=== PATIENT | female | born 1950 | race Caucasian/White ===

== ENCOUNTER 2017-09-12 08:05 | Emergency (ER) | payer BC, MEDICARE ==
[~2017-09-12] VITALS: Ht 172.7 cm; Wt 104.5 kg
[~2017-09-12 08:05] MED LIST: ASPI81TA82 PO; ATOR40TA PO; CLIN1CAP6 PO; FISH100020 PO; LORC10TA24 PO; LOTE20TA3 PO; METF500 PO; TAB-TAB PO; TRAM50TA PO
[2017-09-12 08:11] VITALS: BP 179/97; PULSE 94; RESP 16; TEMP 97.7; O2SAT 97
--- NOTE | 2017-09-12 08:25 | PD ---
HPI Chief Complaint: Dizziness Time Seen by Provider: 08:08 Travel History International Travel<30 days: No Contact w/Intl Traveler<30days: No Traveled to known affect area: No History of Present Illness HPI 67-year-old female says she woke up this morning and had severe vertigo. She tried to stand to go to the bathroom and she fell to the ground. She called an ambulance and brought by ambulance. She says her vertigo is much better now than it was at home. She does not have any tinnitus. She does not have any history of vertigo. She does not have any trouble with her hearing. She had a headache before going to bed which he took some Tylenol. She is having a headache now. This is not unusual for her. There has been no trouble with speech or swallowing PFSH Past Medical History Depression: Yes High Cholesterol: Yes Diabetes: Yes Patient Takes Glucophage: Yes Hypertension: Yes Tetanus Vaccination: > 5 Years Influenza Vaccination: Yes Menopausal: Yes Past Surgical History Abdominal Surgery: Yes (UMBILICAL HERNIA REPAIR) Section: Yes Eye Surgery: Yes (CATAract) Joint Replacement: Yes (TOTAL KNEE RIGHT) Social History Alcohol Use: No Tobacco Use: No (QUIT 8 YRS AGO) Substance Use: No Allergies-Medications (Allergen,Severity, Reaction): Coded Allergies: No Known Allergies (Unverified , 09/12/17) Reported Meds & Prescriptions Reported Meds & Active Scripts Active Reported Benazepril-Hydrochlorothiazide 20-12.5 Mg Tab 1 Tab PO DAILY Metformin (Metformin HCl) 500 Mg Tab 500 Mg PO BIDPC Atorvastatin (Atorvastatin Calcium) 40 Mg Tab 40 Mg PO HS Stool Softener (Docusate Sodium) 100 Mg Cap 1 Tab PO DAILY Echinacea 500 Mg Capsule 900 Mg PO DAILY Vitamin E 100 Unit Tab 1,000 Units PO DAILY Fish Oil 1,000 mg Softgel ([place]-3/Dha/Epa/Fish Oil) 1,000 Mg (120 Mg-180 Mg) Capsule 1,000 Mg PO DAILY Aspirin 81 Mg Chew 81 Mg CHEW DAILY Review of Systems General / Constitutional: No: Fever, Chills Eyes: No: Diploplia, Blurred Vision, Redness, Foreign Body Sensation HENT: Positive: Headaches, Vertigo, Lightheadedness, No: Sore Throat, Rhinitis , Congestion Cardiovascular: No: Chest Pain or Discomfort, Palpitations Respiratory: No: Cough, Shortness of Breath Gastrointestinal: No: Nausea, Vomiting Genitourinary: No: Urgency, Frequency Musculoskeletal: No: Myalgias, Arthralgias Skin: No Rash, No Itching Neurologic: Positive: Dizziness, No: Weakness, Syncope, Focal Abnormalities Hematologic/Lymphatic: No: Easy Bruising Physical Exam Narrative GENERAL: Well-developed female SKIN: Focused skin assessment warm/dry. HEAD: Atraumatic. Normocephalic. EYES: Pupils equal and round. No scleral icterus. No injection or drainage. s some nystagmus on leftward gaze ENT: No nasal bleeding or discharge. Mucous membranes pink and moist. NECK: Trachea midline. No JVD. CARDIOVASCULAR: Regular rate and rhythm. No murmur appreciated. RESPIRATORY: No accessory muscle use. Clear to auscultation. Breath sounds equal bilaterally. GASTROINTESTINAL: Abdomen soft, non-tender, nondistended. Hepatic and splenic margins not palpable. MUSCULOSKELETAL: No obvious deformities. No clubbing. No cyanosis. No edema. NEUROLOGICAL: Awake and alert. No obvious cranial nerve deficits. Motor grossly within normal limits. Normal speech. PSYCHIATRIC: Appropriate mood and affect; insight and judgment normal. Data Data Last Documented VS Vital Signs Date Time Temp Pulse Resp B/P (MAP) Pulse Ox O2 Delivery O2 Flow Rate FiO2 09/12/17 10:50 Room Air 09/12/17 10:49 78 18 158/97 (117) 97 09/12/17 08:11 97.7 Orders Orders Complete Blood Count With Diff (09/12/17 08:22) Comprehensive Metabolic Panel (09/12/17 08:22) Meclizine (Antivert) (09/12/17 08:30) Mri Brain W/O Contrast (09/12/17 09:15) Lisinopril (Prinivil) (09/12/17 09:30) Hydrochlorothiazide (Hydrodiuril) (09/12/17 09:45) Lorazepam Inj (Ativan Inj) (09/12/17 09:45) Acetaminophen (Tylenol) (09/12/17 09:45) Labs Laboratory Tests Test 09/12/17 08:30 White Blood Count 4.8 TH/MM3 Red Blood Count 4.32 MIL/MM3 Hemoglobin 13.5 GM/DL Hematocrit 40.9 % Mean Corpuscular Volume 94.8 FL Mean Corpuscular Hemoglobin 31.3 PG Mean Corpuscular Hemoglobin Concent 33.0 % Red Cell Distribution Width 11.6 % Platelet Count 208 TH/MM3 Mean Platelet Volume 7.8 FL Neutrophils (%) (Auto) 70.0 % Lymphocytes (%) (Auto) 21.2 % Monocytes (%) (Auto) 5.2 % Eosinophils (%) (Auto) 3.1 % Basophils (%) (Auto) 0.5 % Neutrophils # (Auto) 3.5 TH/MM3 Lymphocytes # (Auto) 1.0 TH/MM3 Monocytes # (Auto) 0.2 TH/MM3 Eosinophils # (Auto) 0.1 TH/MM3 Basophils # (Auto) 0.0 TH/MM3 CBC Comment DIFF FINAL Differential Comment Blood Urea Nitrogen 21 MG/DL Creatinine 0.98 MG/DL Random Glucose 140 MG/DL Total Protein 6.7 GM/DL Albumin 3.5 GM/DL Calcium Level 8.8 MG/DL Alkaline Phosphatase 97 U/L Aspartate Amino Transf (AST/SGOT) 37 U/L Alanine Aminotransferase (ALT/SGPT) 73 U/L Total Bilirubin 0.5 MG/DL Sodium Level 138 MEQ/L Potassium Level 3.9 MEQ/L Chloride Level 105 MEQ/L Carbon Dioxide Level 25.4 MEQ/L Anion Gap 8 MEQ/L Estimat Glomerular Filtration Rate 57 ML/MIN MDM Medical Decision Making Medical Screen Exam Complete: Yes Emergency Medical Condition: Yes Medical Record Reviewed: Yes Differential Diagnosis Differential includes labyrinthitis, peripheral vertigo, CVA Narrative Course Patient initially had minimal symptoms however while in the ER she has complaint of increasing vertigo. She was unable to lay flat due to the vertigo. She also is now complaining of headache. His of the increase in symptoms I did order an MRI to assess for possible central etiology. The MRI is read as negative. Patient will be released prescription for Antivert Diagnosis Primary Impression: Labyrinthitis Qualified Codes: H83.09 - Labyrinthitis, unspecified ear Departure Forms: Tests/Procedures, Work Release Enter return to work date: Sep 15, 2017 Scripts Meclizine HCl (Meclizine 25) 25 Mg Tab 1 TAB PO Q6HR for Vertigo, #30 Prov: Ken Trinidad MD 09/12/17 Disposition: DISCHARGE HOME Condition: Stable Kne Trinidad MD Sep 12, 2017 08:25
[2017-09-12] MEDS ORDERED: MECLIZINE HCL 25 MG TAB PO ONE (08:30)
[2017-09-12 08:40] LABS: AUTOMATED NEUTROPHIL # 3.5 TH/MM3 (1.8-7.7); BASOPHIL % 0.5 % (0.0-2.0); EOSINOPHIL # 0.1 TH/MM3 (0-0.4); EOSINOPHIL % 3.1 % (0.0-4.0); HEMATOCRIT 40.9 % (35.0-46.0); HEMOGLOBIN 13.5 GM/DL (11.6-15.3); LYMPH % 21.2 % (9.0-44.0); MEAN CELL VOLUME 94.8 FL (80.0-100.0); MEAN CORPUSCULAR HEMOGLOBIN 31.3 PG (27.0-34.0); MEAN PLATELET VOLUME 7.8 FL (7.0-11.0); MONO % 5.2 % (0.0-8.0); MONOCYTE # 0.2 TH/MM3 (0-0.9); PLATELET COUNT 208 TH/MM3 (150-450); RED BLOOD COUNT 4.32 MIL/MM3 (4.00-5.30); RED CELL DISTRIBUTION WIDTH 11.6 % (11.6-17.2); WHITE BLOOD COUNT 4.8 TH/MM3 (4.0-11.0)
[2017-09-12 08:47] LABS: CHLORIDE 105 MEQ/L (98-107); SODIUM (NA) 138 MEQ/L (136-145)
[2017-09-12 08:50] LABS: CALCIUM 8.8 MG/DL (8.5-10.1)
[2017-09-12 08:51] LABS: ALBUMIN 3.5 GM/DL (3.4-5.0); BICARBONATE 25.4 MEQ/L (21.0-32.0); BLOOD UREA NITROGEN 21 MG/DL (7-18); GLUCOSE,RANDOM 140 MG/DL (74-106)
[2017-09-12 08:54] LABS: ALT (GPT) 73 U/L (10-53); AST (GOT) 37 U/L (15-37); CREATININE 0.98 MG/DL (0.50-1.00); GLOMERULAR FILTRATION RATE 57 ML/MIN (>89)
[2017-09-12 08:55] LABS: TOTAL BILIRUBIN ADULT 0.5 MG/DL (0.2-1.0)
[2017-09-12 08:56] LABS: TOTAL PROTEIN 6.7 GM/DL (6.4-8.2)
[2017-09-12 08:57] LABS: ALKALINE PHOSPHATASE 97 U/L (45-117)
[2017-09-12] MEDS ORDERED: BENA20TA3 PO (09:02)
[2017-09-12] MEDS ORDERED: ASPI-516 CHEW (09:02)
[2017-09-12] MEDS ORDERED: METF500T PO (09:02)
[2017-09-12] MEDS ORDERED: ATOR40TA16 PO (09:02)
[2017-09-12] MEDS ORDERED: OMEG100046 PO (09:02)
[2017-09-12] MEDS ORDERED: ECHI500C5 PO (09:02)
[2017-09-12] MEDS ORDERED: VITA100T65 PO (09:02)
[2017-09-12] MEDS ORDERED: DOCU1CAP66 PO (09:02)
[2017-09-12 09:10] VITALS: BP 163/98; PULSE 82; RESP 18; O2SAT 96
[2017-09-12] MEDS ORDERED: HYDROCHLOROTHIAZIDE 12.5 MG CAP PO ONE (09:15)
[2017-09-12] MEDS ORDERED: LISINOPRIL 20 MG TAB PO ONE (09:30)
[2017-09-12] MEDS ORDERED: HYDROCHLOROTHIAZIDE 25 MG TAB PO ONE (09:45)
[2017-09-12] MEDS ORDERED: ACETAMINOPHEN 500 MG CPLT PO ONE (09:45)
[2017-09-12] MEDS ORDERED: LORazepam 2 MG/ML VIAL IV PUSH ONE (09:45)
[2017-09-12 10:05] VITALS: BP 171/101; PULSE 82; RESP 19; O2SAT 97
[2017-09-12 10:49] VITALS: BP 158/97; PULSE 78; RESP 18; O2SAT 97
--- NOTE | 2017-09-12 11:37 | RADRPT ---
EXAM DATE/TIME: 09/12/2017 11:09 [facility] COMPARISON: No previous studies available for comparison. INDICATIONS : Vertigo with headache for 2 days. Evaluate for CVA. MEDICAL HISTORY : Diabetes mellitus type 2. Hypertension. SURGICAL HISTORY : Total knee replacement, right. Inguinal hernia repair. ENCOUNTER: Initial ACUITY: 2 day PAIN SCORE: 3/10 LOCATION: Head TECHNIQUE: Multiplanar, multisequence MRI of the brain was performed without contrast. FINDINGS: CEREBRUM: The ventricles are normal for age. No evidence of midline shift, mass lesion, hemorrhage or acute in farction. No extraaxial fluid collections are seen. The pituitary gland and suprasellar cistern are normal in configuration. WHITE MATTER: On the flair weighted images there are multiple scattered punctate foci of increased signal in the wh ite matter. POSTERIOR FOSSA: The cerebellum and brainstem are intact. The 4th ventricle is midline. The cerebellopontine angle is unremarkable. The cerebellar tonsils are normal in position. DIFFUSION IMAGING: No focal areas of restricted diffusion are seen. No evidence of acute infarction. EXTRACRANIAL: The visualized portions of the orbits and paranasal sinuses are unremarkable. CONCLUSION: 1. No acute hemorrhage, mass or evidence of acute infarction. 2. Mild atrophy and chronic small vessel ischemic change. Aleksandar Landa MD on September 12, 2017 at 11:29 Board Certified Radiologist. This report was verified electronically.
[2017-09-12] MEDS ORDERED: MECL1TAB42 PO (11:59)
[2017-09-12 12:00] VITALS: BP 124/75; PULSE 78; RESP 17; O2SAT 95
[2017-09-12 12:50] VITALS: BP 128/78
== END 2017-09-12 12:52 | disposition home or self-care (01) ==
LOC: PHED 08:05
DX: H83.09 Labyrinthitis, unspecified ear (principal); F32.9 Major depressive disorder, single episode, unspecified; I10 Essential (primary) hypertension; E78.00 Pure hypercholesterolemia, unspecified; E11.9 Type 2 diabetes mellitus without complications; Z79.82 Long term (current) use of aspirin; Z79.84 Long term (current) use of oral hypoglycemic drugs; Z87.891 Personal history of nicotine dependence
CPT/HCPCS: 70551; 80053; 85025; 96374; 99284; J2060

== ENCOUNTER 2018-10-04 14:15 | Inpatient (IN) ==
--- NOTE | 2018-10-04 15:00 | ED ---
HPI General Chief complaint: Eye Problems Stated complaint: Sent by Dr/nereida vision in lt eye x this am Time Seen by Provider: 10/04/18 14:36 Source: patient Mode of arrival: ambulatory Limitations: no limitations History of Present Illness HPI narrative: This 68-year-old female was told to come here by a retinal specialist. Follow-up to visual disturbance this morning. When she got up she noted some blurred vision. She went to see Dr. Crenshaw who in turn referred her to a retinal specialist. She saw Dr. Franklin who diagnosed a central retinal artery occlusion and told her to come here for stroke workup as soon as possible. He did indicate that clot busting drugs are not recommended at this time. Patient has no history of stroke. She does have diabetes for 3-4 years. She has a history of hypertension. Patient at this time has some slight vision in the upper visual espinosa. The heater helper did dilate both of her eyes Related Data Home Medications Medication Instructions Recorded Confirmed aspirin [Aspir-Low] 81 mg PO DAILY 10/04/18 10/04/18 atenolol 50 mg PO DAILY 10/04/18 10/04/18 atorvastatin [Lipitor] 40 mg PO QPM 10/04/18 10/04/18 benazepril-hydrochlorothiazide 1 tab PO DAILY 10/04/18 10/04/18 cetirizine [Zyrtec] 10 mg PO DAILY PRN 10/04/18 10/04/18 metformin 500 mg PO BID 10/04/18 10/04/18 omega 0-rwy-fgn-fish oil 1 cap PO BID 10/04/18 10/04/18 Allergies Allergy/AdvReac Type Severity Reaction Status Date / Time No Known Allergies Allergy Verified 10/04/18 14:51 Review of Systems ROS: all other systems reviewed are negative [facility] Medical History Medical History Arthritis (Acute) Cataracts, both eyes (Acute) Depression (Acute) Elevated cholesterol (Acute) GERD (gastroesophageal reflux disease) (Acute) Hernia, umbilical (Acute) History of hysterectomy (Acute) Hypertension (Acute) Surgical History Surgical History History of knee replacement procedure of right knee (Acute) History of tonsillectomy (Acute) Social History Social History Substance History: No History of Abuse Smoking Status: Former smoker Tobacco Type: Cigarettes How Often Do You Have a Drink Containing Alcohol: Never Recent Travel in [facility] within the Last 8 Weeks: No Recent Out of Country Travel within the Last 8 Weeks: No Exam Narrative Exam Narrative: GENERAL: Well-developed female SKIN: Focused skin assessment warm/dry. HEAD: Atraumatic. Normocephalic. EYES: Pupils equal and round. No scleral icterus. No injection or drainage. Both eyes are dilated on arrival. The patient states that the heater helper is dilated both of her eyes. She has some vision in the upper visual field on the left eye. ENT: No nasal bleeding or discharge. Mucous membranes pink and moist. NECK: Trachea midline. No JVD. CARDIOVASCULAR: Regular rate and rhythm. No murmur appreciated. RESPIRATORY: No accessory muscle use. Clear to auscultation. Breath sounds equal bilaterally. GASTROINTESTINAL: Abdomen soft, non-tender, nondistended. Hepatic and splenic margins not palpable. MUSCULOSKELETAL: No obvious deformities. No clubbing. No cyanosis. No edema. NEUROLOGICAL: Awake and alert. No obvious cranial nerve deficits. Motor grossly within normal limits. Normal speech. PSYCHIATRIC: Appropriate mood and affect; insight and judgment normal. Course Initial Documented Vital Signs Temperature 98.5 F 10/04/18 14:25 Pulse Rate 68 10/04/18 14:25 Respiratory Rate 16 10/04/18 14:25 Blood Pressure 169/100 H 10/04/18 14:25 Pulse Oximetry 96 10/04/18 14:25 Last Documented Vital Signs Temperature 98.5 F 10/04/18 14:25 Pulse Rate 70 10/04/18 16:02 Respiratory Rate 16 10/04/18 16:02 Blood Pressure 161/82 H 10/04/18 16:02 Pulse Oximetry 97 10/04/18 16:02 Sign Out Sign Out Data: Patient Sign Out occurred on 10/04/18 at 16:08. Patient's care was discussed, and care was transferred from Ken Rondon MD to Dana Bejarano MD. Sign Out Comment: This lady presented with notes from a retinal specialist that she needs full workup for possible stroke due to central retinal artery occlusion. Workup is pending Last updated by Ken Rondon MD at 10/04/18 16:02 Post-Handoff Eval: I received care of patient in check out. At time of check out, stroke work up pending with plan for admission for her CRAO. She was seen by Dr Crenshaw, heater helper, and Dr Franklin, retinal specialist. She came with a note from Dr Franklin stating that "clot busting drugs" were not recommended and that the patient declined a paracentesis (of the chamber). I spoke with Dr Szymanski, our heater helper cardiopulmonary technologist, whom stated that there was not much she could do for the eye acutely at this time. Labs were relatively unremarkable. CT head not acute. CTA shows occlusion of the carotid artery. I spoke with Dr Bush, vascular surgeon cardiopulmonary technologist whom stated that there is nothing to do acutely for a complete occlusion. I spoke with DARCI Ness working with Dr Henson, hospitalist cardiopulmonary technologist, whom agreed to admission. Medical Decision Making MDM Narrative Medical Screen Exam Complete: Yes Emergency Medical Condition: Yes Differential Diagnosis Differential Diagnosis: Differential includes central retinal artery occlusion, stroke workup has been recommended by her retinal specialist. Clot busting drugs are not recommended by her retinal specialist. Lab Data Result diagrams: 10/04/18 15:05 10/04/18 15:05 Lab Results 10/04/18 10/04/18 10/04/18 Range/Units 15:05 15:05 15:05 CBC w Diff Auto diff final WBC 6.8 (4.0-11.0) th/mm3 RBC 4.42 (4.00-5.30) mil/mm3 Hgb 14.1 (11.6-15.3) gm/dL Hct 41.4 (35.0-46.0) % MCV 93.7 (80.0-100.0) fL MCH 31.9 (27.0-34.0) pg MCHC 34.0 (32.0-36.0) % RDW 11.7 (11.6-17.2) % Plt Count 198 (150-450) th/mm3 MPV 8.1 (7.0-11.0) fL Neut % (Auto) 58.8 (16.0-70.0) % Lymph % (Auto) 26.3 (9.0-44.0) % [place] % (Auto) 10.0 H (0.0-8.0) % Eos % (Auto) 3.8 (0.0-4.0) % Baso % (Auto) 1.1 (0.0-2.0) % Neut # (Auto) 3.9 (1.8-7.7) th/mm3 Lymph # (Auto) 1.8 (1.0-4.8) th/mm3 [place] # (Auto) 0.7 (0.0-0.9) th/mm3 Eos # (Auto) 0.3 (0.0-0.4) th/mm3 Baso # (Auto) 0.1 (0.0-0.2) th/mm3 WBC Differential . Differential Comment . ESR 7 (0-30) mm/hr PT (9.8-11.6) sec INR Ratio APTT (23.4-31.7) sec Sodium 138 (136-145) meq/L Potassium 3.9 (3.5-5.1) meq/L Chloride 105 (98-107) meq/L Carbon Dioxide 25.4 (21.0-32.0) meq/L Anion Gap 8 (5-15) meq/L BUN 19 H (7-18) mg/dL Creatinine 0.91 (0.50-1.00) mg/dL Estimated GFR 62 L (>89) mL/min Random Glucose 99 (74-106) mg/dL Calcium 9.3 (8.5-10.1) mg/dL Total Bilirubin 0.7 (0.2-1.0) mg/dL AST 36 (15-37) U/L ALT 58 H (10-53) U/L Alkaline Phosphatase 99 (45-117) U/L Troponin I Less than 0.02 L (0.02-0.05) ng/mL Total Protein 7.3 (6.4-8.2) g/dL Albumin 3.8 (3.4-5.0) g/dL Urine Color (Yellw/Straw) Urine Clarity (Clear) Urine pH (5.0-8.5) Ur Specific [place] (1.002-1.035) Urine Protein (Neg-Trace) mg/dL Urine Glucose (UA) (Negative) mg/dL Urine Ketones (Negative) mg/dL Urine Occult Blood (Negative) Urine Nitrate (Negative) Urine Bilirubin (Negative) Urine Urobilinogen (Less than 2) mg/dL Ur Leukocyte Esterase (Negative) Urine RBC (0-3) /hpf Urine WBC (0-5) /hpf Ur Squamous Epith Cells (0-5) /hpf Micro UA Comment Ur Microscopic Review Urine Culture Comments 10/04/18 10/04/18 Range/Units 15:20 15:57 CBC w Diff WBC (4.0-11.0) th/mm3 RBC (4.00-5.30) mil/mm3 Hgb (11.6-15.3) gm/dL Hct (35.0-46.0) % MCV (80.0-100.0) fL MCH (27.0-34.0) pg MCHC (32.0-36.0) % RDW (11.6-17.2) % Plt Count (150-450) th/mm3 MPV (7.0-11.0) fL Neut % (Auto) (16.0-70.0) % Lymph % (Auto) (9.0-44.0) % [place] % (Auto) (0.0-8.0) % Eos % (Auto) (0.0-4.0) % Baso % (Auto) (0.0-2.0) % Neut # (Auto) (1.8-7.7) th/mm3 Lymph # (Auto) (1.0-4.8) th/mm3 [place] # (Auto) (0.0-0.9) th/mm3 Eos # (Auto) (0.0-0.4) th/mm3 Baso # (Auto) (0.0-0.2) th/mm3 WBC Differential Differential Comment ESR (0-30) mm/hr PT 10.5 (9.8-11.6) sec INR 1.0 Ratio APTT 27.5 (23.4-31.7) sec Sodium (136-145) meq/L Potassium (3.5-5.1) meq/L Chloride (98-107) meq/L Carbon Dioxide (21.0-32.0) meq/L Anion Gap (5-15) meq/L BUN (7-18) mg/dL Creatinine (0.50-1.00) mg/dL Estimated GFR (>89) mL/min Random Glucose (74-106) mg/dL Calcium (8.5-10.1) mg/dL Total Bilirubin (0.2-1.0) mg/dL AST (15-37) U/L ALT (10-53) U/L Alkaline Phosphatase (45-117) U/L Troponin I (0.02-0.05) ng/mL Total Protein (6.4-8.2) g/dL Albumin (3.4-5.0) g/dL Urine Color Yellow (Yellw/Straw) Urine Clarity Clear (Clear) Urine pH 6.0 (5.0-8.5) Ur Specific [place] Less/equal 1.005 (1.002-1.035) Urine Protein Negative (Neg-Trace) mg/dL Urine Glucose (UA) Negative (Negative) mg/dL Urine Ketones Negative (Negative) mg/dL Urine Occult Blood Negative (Negative) Urine Nitrate Negative (Negative) Urine Bilirubin Negative (Negative) Urine Urobilinogen 0.2 (Less than 2) mg/dL Ur Leukocyte Esterase Negative (Negative) Urine RBC 0-3 (0-3) /hpf Urine WBC 0-5 (0-5) /hpf Ur Squamous Epith Cells 0-5 (0-5) /hpf Micro UA Comment Culture not ind Ur Microscopic Review Microscopic reviewed Urine Culture Comments Culture not ind Imaging Data Radiologist's impression: Head CT 10/04/18 14:53 CONCLUSION: 1. Negative CT Head non contrast. . . Head CTA 10/04/18 14:53 CONCLUSION: 1. Left internal carotid artery occlusion noted as above. . . Neck CTA 10/04/18 14:53 CONCLUSION: 1. Occlusion of the left internal carotid artery at its origin. 2. Severe stenosis of the left subclavian artery just proximal to the origin of the vertebral artery. 3. Mild calcific plaque in the right carotid bulb with no significant stenosis. 4. Dominant right vertebral artery. Discharge Plan Discharge Disposition Patient Disposition: ED Admit(ED Internal Use Only) Discharge Condition Condition: Stable Discharge Order Discharge Orders: ED Use Only Admit Order (Routine); Ordered 10/04/18 Ordered By: Dana Bejarano Discharge Details Diagnosis: CRAO (central retinal artery occlusion) Physicians Team ED Provider: Dana Bejarano Primary Care Provider: Tenzin Small Attending Provider: Antione Henson Other Providers: Valente Pollock ; Rubin Friend ; Systems,[employer] ; Ko Sorto ; Clarissa Kenyon ; Sebastian Padilla ; Gali Mack ; Spencer Hager ; Andrea Bush ; Dimas Lal Discharge Interventions Interventions: Vital Signs Last Done: 10/04/18 16:02 Status ED Status: Admitted Patient
[2018-10-04 15:19] LABS: Baso # (Auto) 0.1 th/mm3 (0.0-0.2); Baso % (Auto) 1.1 % (0.0-2.0); Eos # (Auto) 0.3 th/mm3 (0.0-0.4); Eos % (Auto) 3.8 % (0.0-4.0); Hematocrit 41.4 % (35.0-46.0); Hemoglobin 14.1 gm/dL (11.6-15.3); Lymph # (Auto) 1.8 th/mm3 (1.0-4.8); Lymph % (Auto) 26.3 % (9.0-44.0); Mean Corpuscular Hemoglobin 31.9 pg (27.0-34.0); Mean Corpuscular Volume 93.7 fL (80.0-100.0); Mean Platelet Volume 8.1 fL (7.0-11.0); Mono # (Auto) 0.7 th/mm3 (0.0-0.9); Neut # (Auto) 3.9 th/mm3 (1.8-7.7); Neut % (Auto) 58.8 % (16.0-70.0); Platelet Count 198 th/mm3 (150-450); Red Blood Count 4.42 mil/mm3 (4.00-5.30); Red Cell Distribution Width 11.7 % (11.6-17.2); White Blood Count 6.8 th/mm3 (4.0-11.0)
[2018-10-04 15:29] LABS: Chloride 105 meq/L (98-107); Potassium 3.9 meq/L (3.5-5.1); Sodium 138 meq/L (136-145)
[2018-10-04 15:31] LABS: Calcium 9.3 mg/dL (8.5-10.1)
[2018-10-04 15:32] LABS: Albumin 3.8 g/dL (3.4-5.0); Anion Gap 8 meq/L (5-15); Blood Urea Nitrogen 19 mg/dL (7-18); Carbon Dioxide 25.4 meq/L (21.0-32.0); Glucose,Random 99 mg/dL (74-106)
[2018-10-04 15:33] LABS: Bilirubin,Urine Negative (Negative); Clarity,Urine Clear (Clear); Color,Urine Yellow (Yellw/Straw); Glucose,Urine (UA) Negative (Negative); Leukocyte Esterase,Urine Negative (Negative); Nitrite,Urine Negative (Negative); Specific Gravity,Urine Less/Equal 1.005 (1.002-1.035); Urobilinogen,Urine 0.2 mg/dL (Less than 2)
[2018-10-04 15:35] LABS: Aspartate Aminotransferase 36 U/L (15-37); Glomerular Filtration Rate 62 mL/min (>89)
[2018-10-04 15:37] LABS: RBC,Urine 0-3 /hpf (0-3); Squamous Epithelial Cell,Urine 0-5 /hpf (0-5); WBC,Urine 0-5 /hpf (0-5)
[2018-10-04 15:37] LABS: Total Protein 7.3 g/dL (6.4-8.2)
[2018-10-04 15:38] LABS: Alkaline Phosphatase 99 U/L (45-117)
[2018-10-04 15:45] LABS: Alanine Aminotransferase 58 U/L (10-53)
[2018-10-04 16:13] LABS: Activated Partial Thrombo Time 27.5 sec (23.4-31.7); Prothrombin Time 10.5 sec (9.8-11.6)
--- NOTE | 2018-10-04 16:24 | CT ---
EXAM DATE: 10/04/2018 4:21 PM EST AGE/SEX: 68 years / Female INDICATIONS: Visual loss in left eye, now resolved. CLINICAL DATA: This is the patient's initial encounter. Patient reports that signs and symptoms have been present for 1 day and indicates a pain score of 0/10. MEDICAL/SURGICAL HISTORY: Hypertension. Hysterectomy. Tonsillectomy. RADIATION DOSE: 58.08 CTDI (mGy) COMPARISON: No prior exams available for comparison. TECHNIQUE: CT of the head without contrast. Using automated exposure control and adjustment of the mA and/or kV according to patient size, radiation dose was kept as low as reasonably achievable to ob tain optimal diagnostic quality images. DICOM format image data is available electronically for revi ew and comparison. FINDINGS: Cerebrum: The ventricles are normal for age. No evidence of midline shift, mass lesion, hemorrhage or acute infarction. No extraaxial fluid collections are seen. Posterior Fossa: The cerebellum and brainstem are intact. The 4th ventricle is midline. The cerebe llopontine angle is unremarkable. Extracranial: The visualized portion of the orbits is intact. Skull: The calvaria is intact. No evidence of skull fracture. CONCLUSION: 1. Negative CT Head non contrast. . . Electronically signed by: Johnny Burt MD Board Certified Radiologist 10/04/2018 4:23 PM EST
--- NOTE | 2018-10-04 17:14 | CT ---
EXAM DATE: 10/04/2018 5:10 PM EST AGE/SEX: 68 years / Female INDICATIONS: Visual loss in left eye, now resolved. CLINICAL DATA: This is the patient's initial encounter. Patient reports that signs and symptoms have been present for 1 day and indicates a pain score of 0/10. MEDICAL/SURGICAL HISTORY: Hypertension. Hysterectomy. Tonsillectomy. RADIATION DOSE: 42.78 CTDI (mGy) ; Combined studies COMPARISON: No prior exams available for comparison. TECHNIQUE: Volumetric scanning was performed using a multi-row detector CT scanner during bolus infu lisa of 74 ml Omnipaque 350 (iohexol) nonionic water-soluble contrast as a cumulative dose for multi ple exams. The data was post processed with a variety of visualization algorithms including full vo lume maximum intensity projection, multi-planar sliding thin slab reformation, curved planar reformat ion, and surface rendering techniques. Using automated exposure control and adjustment of the mA and /or kV according to patient size, radiation dose was kept as low as reasonably achievable to obtain o ptimal diagnostic quality images. DICOM format image data is available electronically for review and comparison. FINDINGS: The left internal carotid artery is occluded at its origin. This extends intracranially to the suprac linoid level. There is filling of the left middle cerebral artery via the anterior communicating ced ry. Anterior cerebral arteries are patent. The right middle cerebral artery, internal carotid artery, bilateral vertebral arteries, basilar artery and posterior cerebral arteries are patent. Dominant ri ght vertebral artery is noted. There is a calcified granuloma in the left upper lobe. CONCLUSION: 1. Left internal carotid artery occlusion noted as above. . . Electronically signed by: Johnny Burt MD Board Certified Radiologist 10/04/2018 5:13 PM EST
--- NOTE | 2018-10-04 17:44 | CT ---
EXAM DATE: 10/04/2018 5:21 PM EST AGE/SEX: 68 years / Female INDICATIONS: Visual loss in left eye, now resolved. CLINICAL DATA: This is the patient's initial encounter. Patient reports that signs and symptoms have been present for 1 day and indicates a pain score of 0/10. MEDICAL/SURGICAL HISTORY: Hypertension. Hysterectomy. Tonsillectomy. RADIATION DOSE: 542.78 CTDI (mGy) ; Combined studies COMPARISON: No prior exams available for comparison. TECHNIQUE: Volumetric scanning was performed using a multirow detector CT scanner during bolus infus ion of 74 ml Omnipaque 350 (iohexol) nonionic water-soluble contrast as a cumulative dose for multip le exams. The data was postprocessed with a variety of visualization algorithms including full-volu me maximum intensity projection, multiplanar sliding thin-slab reformation, curved-planar reformation , and surface-rendering techniques. Using automated exposure control and adjustment of the mA and/or kV according to patient size, radiation dose was kept as low as reasonably achievable to obtain opti mal diagnostic quality images. DICOM format image data is available electronically for review and co mparison. FINDINGS: Aortic Arch: There is a three-vessel origin of the great vessels from the aorta. No evidence of ost ial narrowing Right Carotid: The common carotid artery is intact. The carotid bulb has a normal configuration mil d ossific plaque and no significant stenosis. The internal carotid artery lumen is smooth without robb nosis. The external carotid artery is intact. Left Carotid: The common carotid artery is intact. The carotid bulb has a normal configuration with out ulceration or narrowing. The left internal carotid artery is occluded at its origin. The external carotid artery is intact. Vertebrals: There is a dominant right vertebral artery. No stenotic lesions are seen. There is a severe stenosis of the left subclavian artery just proximal to the origin of the vertebral artery. Percent stenosis is calculated using the diameter of the stenotic region over the diameter of the nor mal distal internal carotid artery. CONCLUSION: 1. Occlusion of the left internal carotid artery at its origin. 2. Severe stenosis of the left subclavian artery just proximal to the origin of the vertebral artery . 3. Mild calcific plaque in the right carotid bulb with no significant stenosis. 4. Dominant right vertebral artery. Electronically signed by: Aleksandar Landa MD Board Certified Radiologist 10/04/2018 5:43 PM EST
[2018-10-04] MEDS ORDERED: Bisacodyl 10 MG Supp RECTAL PRN (18:01)
[2018-10-04] MEDS ORDERED: Acetaminophen 325 MG Tablet PO PRN (18:01)
[2018-10-04] MEDS ORDERED: Dextrose 50% in Water 50 ML Vial IV.PUSH PRN (18:05)
--- NOTE | 2018-10-04 18:15 | P.PNVS ---
Subjective Subjective/Hospital Course: Referral received and full consult to follow Thanks J Objective Vital Signs / I&O: Vital Signs 10/04/18 14:25 10/04/18 14:55 10/04/18 15:37 Temperature 98.5 F Pulse Rate 68 69 72 Respiratory Rate 16 16 Blood Pressure 169/100 H 145/79 H Pulse Oximetry 96 96 96 10/04/18 16:02 Temperature Pulse Rate 70 Respiratory Rate 16 Blood Pressure 161/82 H Pulse Oximetry 97 Intake & Output 10/03/18 10/04/18 10/04/18 18:59 06:59 18:59 Weight 107 kg Laboratory Results - last 24 hr 10/04/18 10/04/18 10/04/18 15:05 15:05 15:05 CBC w Diff Auto diff final WBC 6.8 RBC 4.42 Hgb 14.1 Hct 41.4 MCV 93.7 MCH 31.9 MCHC 34.0 RDW 11.7 Plt Count 198 MPV 8.1 Neut % (Auto) 58.8 Lymph % (Auto) 26.3 [place] % (Auto) 10.0 H Eos % (Auto) 3.8 Baso % (Auto) 1.1 Neut # (Auto) 3.9 Lymph # (Auto) 1.8 [place] # (Auto) 0.7 Eos # (Auto) 0.3 Baso # (Auto) 0.1 WBC Differential . Differential Comment . ESR 7 PT INR APTT Sodium 138 Potassium 3.9 Chloride 105 Carbon Dioxide 25.4 Anion Gap 8 BUN 19 H Creatinine 0.91 Estimated GFR 62 L Random Glucose 99 Calcium 9.3 Total Bilirubin 0.7 AST 36 ALT 58 H Alkaline Phosphatase 99 Troponin I Less than 0.02 L Total Protein 7.3 Albumin 3.8 Urine Color Urine Clarity Urine pH Ur Specific [place] Urine Protein Urine Glucose (UA) Urine Ketones Urine Occult Blood Urine Nitrate Urine Bilirubin Urine Urobilinogen Ur Leukocyte Esterase Urine RBC Urine WBC Ur Squamous Epith Cells Micro UA Comment Ur Microscopic Review Urine Culture Comments 10/04/18 10/04/18 15:20 15:57 CBC w Diff WBC RBC Hgb Hct MCV MCH MCHC RDW Plt Count MPV Neut % (Auto) Lymph % (Auto) [place] % (Auto) Eos % (Auto) Baso % (Auto) Neut # (Auto) Lymph # (Auto) [place] # (Auto) Eos # (Auto) Baso # (Auto) WBC Differential Differential Comment ESR PT 10.5 INR 1.0 APTT 27.5 Sodium Potassium Chloride Carbon Dioxide Anion Gap BUN Creatinine Estimated GFR Random Glucose Calcium Total Bilirubin AST ALT Alkaline Phosphatase Troponin I Total Protein Albumin Urine Color Yellow Urine Clarity Clear Urine pH 6.0 Ur Specific [place] Less/equal 1.005 Urine Protein Negative Urine Glucose (UA) Negative Urine Ketones Negative Urine Occult Blood Negative Urine Nitrate Negative Urine Bilirubin Negative Urine Urobilinogen 0.2 Ur Leukocyte Esterase Negative Urine RBC 0-3 Urine WBC 0-5 Ur Squamous Epith Cells 0-5 Micro UA Comment Culture not ind Ur Microscopic Review Microscopic reviewed Urine Culture Comments Culture not ind Impressions Head CT 10/04/18 14:53 CONCLUSION: 1. Negative CT Head non contrast. . . Head CTA 10/04/18 14:53 CONCLUSION: 1. Left internal carotid artery occlusion noted as above. . . Neck CTA 10/04/18 14:53 CONCLUSION: 1. Occlusion of the left internal carotid artery at its origin. 2. Severe stenosis of the left subclavian artery just proximal to the origin of the vertebral artery. 3. Mild calcific plaque in the right carotid bulb with no significant stenosis. 4. Dominant right vertebral artery.
[2018-10-04] MEDS: Sod Chloride 0.9% Inj 1,000 ML IV.CONT SCH (18:47)
--- NOTE | 2018-10-04 19:51 | ECG ---
Date Performed: 10/04/2018 Time Performed: 15:16:46 PTAGE: 68 years EKG: Sinus rhythm NORMAL ECG NO PREVIOUS TRACING DOCTOR: Tia Daigle Interpretating Date/Time 10/04/2018 19:50:22
[2018-10-04] MEDS: Insulin NovoLOG Aspart Correctional Sugar Inj SQ SCH (21:08)
[2018-10-04 23:18] LABS: Chol/HDL Ratio 3.77 Ratio; HDL Cholesterol 48.8 mg/dL (40.0-60.0)
[2018-10-05] MEDS: Sod Chloride 0.9% Inj 1,000 ML IV.CONT SCH ×2 (03:42→21:28)
[2018-10-05 06:42] LABS: Chloride 106 meq/L (98-107); Potassium 4.2 meq/L (3.5-5.1); Sodium 141 meq/L (136-145)
[2018-10-05 06:47] LABS: Albumin 3.7 g/dL (3.4-5.0); Anion Gap 6 meq/L (5-15); Carbon Dioxide 28.6 meq/L (21.0-32.0); Glucose,Random 118 mg/dL (74-106)
[2018-10-05 06:48] LABS: Baso % (Auto) 0.8 % (0.0-2.0); Blood Urea Nitrogen 16 mg/dL (7-18); Eos # (Auto) 0.2 th/mm3 (0.0-0.4); Eos % (Auto) 3.9 % (0.0-4.0); Hematocrit 42.4 % (35.0-46.0); Lymph # (Auto) 1.7 th/mm3 (1.0-4.8); Lymph % (Auto) 30.8 % (9.0-44.0); Mean Corpuscular HGB Conc 33.1 % (32.0-36.0); Mean Corpuscular Hemoglobin 31.6 pg (27.0-34.0); Mean Corpuscular Volume 95.4 fL (80.0-100.0); Mean Platelet Volume 8.8 fL (7.0-11.0); Mono # (Auto) 0.6 th/mm3 (0.0-0.9); Mono % (Auto) 10.2 % (0.0-8.0); Neut # (Auto) 3.1 th/mm3 (1.8-7.7); Neut % (Auto) 54.3 % (16.0-70.0); Platelet Count 207 th/mm3 (150-450); Red Blood Count 4.45 mil/mm3 (4.00-5.30); Red Cell Distribution Width 12.4 % (11.6-17.2); White Blood Count 5.6 th/mm3 (4.0-11.0)
[2018-10-05 06:50] LABS: Alanine Aminotransferase 56 U/L (10-53); Aspartate Aminotransferase 37 U/L (15-37); Glomerular Filtration Rate 64 mL/min (>89)
[2018-10-05 06:53] LABS: Alkaline Phosphatase 94 U/L (45-117)
[2018-10-05] MEDS: Insulin NovoLOG Aspart Correctional Sugar Inj SQ SCH ×4 (08:24→21:27)
[2018-10-05] MEDS: Atenolol 50 MG Tablet PO SCH (08:59)
[2018-10-05] MEDS ORDERED: Non-Formulary Drug (Benazepril-Hydrochlorothiazide [Benazepril-Hydrochlorothiazide] 1 TAB) PO SCH (09:00)
--- NOTE | 2018-10-05 09:59 | MR ---
EXAM DATE: 10/05/2018 9:49 AM EST AGE/SEX: 68 years / Female INDICATIONS: CVA. CLINICAL DATA: This is the patient's initial encounter. Patient reports that signs and symptoms have been present for 1 day and indicates a pain score of 0/10. MEDICAL/SURGICAL HISTORY: Diabetes mellitus type II. Hypertension. . Knee replacement. COMPARISON: [facility], MRA HEAD W/O CONTRAST, 10/05/2018. [facility], MRI BRAIN W/O CONTRAST, 09/12/2017. . TECHNIQUE: Multiplanar, multisequence examination of the brain was performed without contrast. FINDINGS: Cerebrum: Small infarcts in the left frontal and parietal lobes appear old. The ventricles are tamar l for age. No evidence of midline shift, mass lesion, hemorrhage or acute infarction. No extraaxial fluid collections are seen. The pituitary gland and suprasellar cistern are normal in configuration . White Matter: Scattered foci of bright T2 signal abnormalities are seen in the white matter. Posterior Fossa: The cerebellum and brainstem are intact. The 4th ventricle is midline. The cerebel lopontine angle is unremarkable. The cerebellar tonsils are normal in position. Diffusion Imaging: No focal areas of restricted diffusion are seen. No evidence of acute infarction . Extracranial: The visualized portions of the orbits and paranasal sinuses are unremarkable. CONCLUSION: 1. Chronic ischemic small vessel vasculopathy. 2. 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 Electronically signed by: Antione Zambrano MD Board Certified Radiologist 10/05/2018 9:57 AM EST
--- NOTE | 2018-10-05 10:02 | MR ---
EXAM DATE: 10/05/2018 9:48 AM EST AGE/SEX: 68 years / Female INDICATIONS: CVA. Loss of vision in left eye. CLINICAL DATA: This is the patient's initial encounter. Patient reports that signs and symptoms have been present for 1 day and indicates a pain score of 0/10. MEDICAL/SURGICAL HISTORY: Hypertension. Diabetes mellitus type II. . Knee replacement. COMPARISON: HPO, MR HEAD W/O CONTRAST, 10/05/2018. . TECHNIQUE: 3D [id number] MRA was performed. Source images, multiplanar STS MIP, and 3D volum e MIP reconstructions were reviewed. FINDINGS: There is excellent visualization of the major intracranial arteries out to the second-order branch ve ssels. There is no evidence for aneurysm, vessel truncation or stenosis, and no evidence for vascula r malformation anterior communicating artery. Left-sided posterior communicating artery. There is occ lusion of the left distal internal carotid artery extending from the siphon to the terminus. Dominant right vertebral artery. CONCLUSION: 1. Occlusion of the distal left internal carotid artery. 2. No large vessel stenosis or aneurysm in the intracranial vasculature. Electronically signed by: Antione Zambrano MD Board Certified Radiologist 10/05/2018 10:00 AM EST
[2018-10-05] MEDS: Lisinopril 20 MG Tablet PO SCH (10:24)
--- NOTE | 2018-10-05 10:45 | MB ---
cc: Dimas Garcia MD DATE: 10/05/2018 HISTORY OF PRESENT ILLNESS: This is a 68-year-old right-handed woman with a history of hypertension, ykd-oqxwvvv-pnjujvwge diabetes, hypercholesterolemia. She does take a baby aspirin a day. She has not had any headaches or temporal tenderness. No chest pain or palpitations. Then yesterday morning she woke up and felt like she could not see well out of the left eye. She went to the eye doctor and was found to have a central retinal artery occlusion versus a branch retinal artery occlusion. She went to the ER. CT of the brain was negative. CTA of the [place] showed good filling of the left MCA but left internal carotid artery occlusion in the cervical region. She also has some stenosis of the left subclavian artery proximal to the vertebral artery takeoff and she is right vertebral dominant with a smaller left vertebral artery that appears to be patent, possibly some disease proximally on that. PAST MEDICAL HISTORY: She denied any history of GA, stent, angioplasty, Coumadin, renal, hepatic or pulmonary disease, thyroid disease, lupus, ulcer, cancer, seizure, stroke. SOCIAL HISTORY: Nonsmoker. Occasional drink. Lives with son. FAMILY HISTORY: Negative for cancer, seizure, stroke. MEDICATIONS AT HOME: 1. Zyrtec. 2. Fish oil. 3. Aspirin 81 mg. 4. Lipitor. 5. Benazepril. 6. Atenolol. 7. Metformin. PHYSICAL EXAMINATION: GENERAL: She is in sinus rhythm. VITAL SIGNS: Afebrile 79, 20, 210/110-169/100. NECK: There are no carotid bruits. HEART: Regular rhythm. I did not detect a murmur. NEUROLOGIC: Can see superiorly in the left eye. Inferiorly there is haze but she can see through it a little bit. Right eye: Visual espinosa are full. Pupils are equal. Extraocular movements intact without nystagmus. Face is symmetric with normal sensation. Tongue was midline. No drift. Normal strength in upper and lower extremities bilaterally. DTRs trace throughout. Toes downgoing bilaterally. Pinprick is intact throughout. Intact [id number]-[id number]. Speech is fluent, not aphasic. LABORATORY DATA: Sedimentation rate is normal. Basic metabolic profile normal. Glucose 161. LFTs essentially unremarkable, minimally elevated only. LDL cholesterol 81. UA negative. Coags negative. Sedimentation rate was 7. CBC normal. CTA of the neck and [place] shows a left carotid occlusion in the cervical region. Internal carotid artery is occluded. CTA of the head shows good filling of the left MCA across the [place]. MRI of the brain: Two small old infarcts on the left, just up subcortical, and some white matter changes bilaterally. No acute infarct noted. Official report pending. IMPRESSION: Left internal carotid artery occlusion, likely at the time of the central retinal artery occlusion. I would recommend IV heparin, no bolus ever and Coumadin and I am just going to clear that with the motorboat operator to make sure there was no bleeding in the back of the eye and when he does call me back, Dr. Franklin, I left message for now, then we could start her on the heparin. We will check an echo and Holter on her also. I noted troponin here was negative. MD CARLINE Barber/ritchie , 10:18 AM , 10:25 AM
[2018-10-05] MEDS: Heparin Drip 25,000 UNIT/250 ML BAG IV.CONT PRN (11:44)
--- NOTE | 2018-10-05 12:47 | P.HPIM ---
History of Present Illness Primary Care Physician: Tenzin Small MD Chief Complaint: Loss of vision in the left eye History of Present Illness: 68-year-old female for past medical history of diabetes type 2, hypertension and hyperlipidemia presented to the ED yesterday at the request of ophthalmology for evaluation of left central retinal artery occlusion. Patient states, around 5:30 AM on the morning of October 04, 2018, she would And noted a sensation of cloud in her left eye. She states he felt like loss of visions but there was no associated pain. Few hours after she tried warm compress and eyedrops applied to the left eye without any improvement and decided to seek medical attention. She was initially seen by her PCP will refer her to an promotions team leader, where she was diagnosed with left central retinal artery occlusion. She presented to the ED and was subsequently admitted. She has no chest pain or shortness of breath. While in the ED, neck CTA/MRA revealed left internal carotid artery occlusion for which vascular surgery was consulted. Neurology was also consulted and patient was seen this morning by Dr. Camarena. Inpatient Certification Inpatient Certification: I certify that the inpatient services were ordered in accordance with Medicare regulations governing the order. This includes certification that hospital inpatient services are reasonable and necessary and in the case of services not specified as inpatient-only under 42 CFR 419.22(n), that they are appropriately provided as inpatient services in accordance to with the 2-midnight benchmark under 43 CFR 412.3(e) Estimated Total Length of Stay (Days): 2 Plans for Post Hospital Care: Not yet determined Review of Systems Review of Systems: all other systems reviewed are negative [facility] Family History Family History Other CAD (coronary artery disease) Social History Social History Substance History: No History of Abuse Second Hand Smoke Exposure: No Smoking Status: Former smoker Tobacco Type: Cigarettes How Often Do You Have a Drink Containing Alcohol: Never Recent Travel in [place] within the Last 8 Weeks: No Recent Out of Country Travel within the Last 8 Weeks: No Immunization History Tetanus Immunization: Unsure Hx Influenza Vaccine This Season: Yes Medications and Allergies Allergies Allergy/AdvReac Type Severity Reaction Status Date / Time No Known Allergies Allergy Verified 10/04/18 14:51 Home Medications Medication Instructions Recorded Confirmed Type aspirin [Aspir-Low] 81 mg PO DAILY 10/04/18 10/04/18 History atenolol 50 mg PO DAILY 10/04/18 10/04/18 History atorvastatin [Lipitor] 40 mg PO QPM 10/04/18 10/04/18 History benazepril-hydrochlorothiazide 1 tab PO DAILY 10/04/18 10/04/18 History cetirizine [Zyrtec] 10 mg PO DAILY PRN 10/04/18 10/04/18 History metformin 500 mg PO BID 10/04/18 10/04/18 History omega 6-btu-zfn-fish oil 1 cap PO BID 10/04/18 10/04/18 History Active Medications: Active Medications Acetaminophen (Tylenol) 650 mg PO Q4H PRN PRN Reason: Temp > 100.4 Al Hydroxide/Mg Hydroxide (Milk Of Magnesia Liq) 30 ml PO Q12H PRN PRN Reason: Mild Constipation Atenolol (Tenormin) 50 mg PO DAILY [facility] Last Admin: 10/05/18 08:59 Dose: 50 mg Atorvastatin Calcium (Lipitor) 40 mg PO QPM [facility] Bisacodyl (Dulcolax Supp) 10 mg RECTAL DAILY PRN PRN Reason: SEVERE CONSITIPATION Dextrose (D50w Vial) 50 ml IV.PUSH UNSCH PRN PRN Reason: PER HYPOGLYCEMIA PROTOCOL Glucagon (Glucagon Inj) 1 mg OTHER PRN PRN PRN Reason: for Hypoglycemia Protocol Hydrochlorothiazide (Microzide) 12.5 mg PO DAILY [facility] Last Admin: 10/05/18 10:24 Dose: 12.5 mg Sodium Chloride (Ns Inj) 1,000 mls @ 100 mls/hr IV.CONT .Q10H [facility] Last Admin: 10/05/18 03:42 Dose: 100 mls/hr Heparin Sodium/Dextrose (Heparin/D5w 25,000 U/250 Ml) 25,000 unit in 250 mls @ 12 mls/hr IV.CONT TITRATE PRN; Protocol PRN Reason: Per Protocol Last Admin: 10/05/18 11:44 Dose: 1,200 units/hr, 12 mls/hr Insulin Aspart (Novolog Insulin Correctional Sugar Inj) 0 unit SQ ACHS [facility]; Protocol Last Admin: 10/05/18 12:00 Dose: Not Given Lactulose (Lactulose Liq) 30 ml PO DAILY PRN PRN Reason: SEVERE CONSITIPATION Lisinopril (Prinivil) 20 mg PO DAILY [facility] Last Admin: 10/05/18 10:24 Dose: 20 mg Ondansetron HCl (Zofran Inj) 4 mg IV.PUSH Q6H PRN PRN Reason: NAUSEA OR VOMITING Sennosides (Senokot) 17.2 mg PO Q12H PRN PRN Reason: Moderate Constipation Sodium Chloride (Ns Flush) 2 ml IV.FLUSH BID [facility] Last Admin: 10/05/18 09:00 Dose: 2 ml Sodium Chloride (Ns Flush) 2 ml IV.FLUSH PRN PRN PRN Reason: FLUSH AFTER USING IV ACCESS Warfarin Sodium (Coumadin) 5 mg PO DAILY@1600 [facility] Physical Exam Vital signs: Vital Signs 10/04/18 14:25 10/04/18 14:55 10/04/18 15:37 Temperature 98.5 F Pulse Rate 68 69 72 Respiratory Rate 16 16 Blood Pressure 169/100 H 145/79 H Pulse Oximetry 96 96 96 10/04/18 16:02 10/04/18 18:30 10/04/18 18:45 Temperature 96.1 F L Pulse Rate 70 72 71 Respiratory Rate 16 20 16 Blood Pressure 161/82 H 187/92 H 163/82 H Pulse Oximetry 97 95 96 10/04/18 20:00 10/04/18 20:55 10/05/18 00:00 Temperature 96.5 F L 97.3 F L Pulse Rate 72 69 Respiratory Rate 20 18 Blood Pressure 177/83 H 188/87 H Pulse Oximetry 95 96 96 10/05/18 04:00 10/05/18 08:00 10/05/18 08:51 Temperature 97.4 F L 96 F L Pulse Rate 61 79 Respiratory Rate 18 20 Blood Pressure 169/86 H 210/110 H Pulse Oximetry 97 97 97 10/05/18 12:00 Temperature 97.1 F L Pulse Rate 80 Respiratory Rate 20 Blood Pressure 139/75 Pulse Oximetry 98 Intake & Output 10/04/18 10/05/18 10/05/18 18:59 06:59 18:59 Intake Total 1480 / 1480 480 / 480 Output Total 300 / 300 Balance 1480 / 1480 180 / 180 Weight 107 kg 106.7 kg Intake: IV 1000 / 1000 NS Inj 1,000 ML @ 100 mls/hr IV 1000 / 1000 .CONT .Q10H [facility] Rx#:[id number] Oral 480 / 480 480 / 480 Output: Urine 300 / 300 Other: # Voids 3 Narrative: GENERAL: NAD SKIN: Warm and dry. HEAD: Atraumatic. Normocephalic. EYES: Pupils equal and round. No scleral icterus. No injection or drainage. ENT: No nasal bleeding or discharge. Mucous membranes pink and moist. NECK: Trachea midline. No JVD. CARDIOVASCULAR: Regular rate and rhythm. RESPIRATORY: No accessory muscle use. Clear to auscultation. Breath sounds equal bilaterally. GASTROINTESTINAL: Abdomen soft, non-tender, nondistended. Hepatic and splenic margins not palpable. MUSCULOSKELETAL: Extremities without clubbing, cyanosis, or edema. No obvious deformities. NEUROLOGICAL: Awake and alert. No obvious cranial nerve deficits. Motor grossly within normal limits. Five out of 5 muscle strength in the arms and legs. Normal speech. PSYCHIATRIC: Appropriate mood and affect; insight and judgment normal. Results Labs CBC & Chem 7: 10/05/18 05:20 10/05/18 05:[address] 10/04/18 14:53 CONCLUSION: 1. Negative CT Head non contrast. . . Head CTA 10/04/18 14:53 CONCLUSION: 1. Left internal carotid artery occlusion noted as above. . . Neck CTA 10/04/18 14:53 CONCLUSION: 1. Occlusion of the left internal carotid artery at its origin. 2. Severe stenosis of the left subclavian artery just proximal to the origin of the vertebral artery. 3. Mild calcific plaque in the right carotid bulb with no significant stenosis. 4. Dominant right vertebral artery. Head MRI 10/05/18 00:00 CONCLUSION: 1. Chronic ischemic small vessel vasculopathy. 2. 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 Head MRA 10/05/18 00:00 CONCLUSION: 1. Occlusion of the distal left internal carotid artery. 2. No large vessel stenosis or aneurysm in the intracranial vasculature. Caprini VTE Risk Assessment Caprini VTE Risk Assessment: Moderate/High Risk (score >= 2) Caprini Risk Assessment Model: Point Value = 1 Point Value = 2 Point Value = 3 Point Value = 5 Age 41-60 Minor surgery BMI > 25 kg/m2 Swollen legs Varicose veins or History of unexplained or recurrent spontaneous Oral contraceptives or hormone replacement Sepsis (< 1 month) Serious lung disease, including pneumonia (< 1 month) Abnormal pulmonary function Acute myocardial infarction Congestive heart failure (< 1 month) History of inflammatory bowel disease Medical patient at bed rest Age 61-74 Arthroscopic surgery Major open surgery (> 45 min) Laparoscopic surgery (> 45 min) Malignancy Confined to bed (> 72 hours) Immobilizing plaster cast Central venous access Age >= 75 History of VTE Family history of VTE Factor V Leiden Prothrombin [id number] Lupus anticoagulant Anticardiolipin antibodies Elevated serum homocysteine Heparin-induced thrombocytopenia Other congenital or acquired thrombophilia Stroke (< 1 month) Elective arthroplasty Hip, pelvis, or leg fracture Acute spinal cord injury (< 1 month) Prophylaxis Regimen: Total Risk Factor Score Risk Level Prophylaxis Regimen 0-1 Low Early ambulation 2 Moderate Order ONE of the following: *Sequential Compression Device (SCD) *Heparin 5000 units SQ BID 3-4 Higher Order ONE of the following medications: *Heparin 5000 units SQ TID *Enoxaparin/Lovenox 40 mg SQ daily (WT < 150 kg, CrCl > 30 mL/min) *Enoxaparin/Lovenox 30 mg SQ daily (WT < 150 kg, CrCl > 10-29 mL/min) *Enoxaparin/Lovenox 30 mg SQ BID (WT < 150 kg, CrCl > 30 mL/min) AND/OR *Sequential Compression Device (SCD) 5 or more Highest Order ONE of the following medications: *Heparin 5000 units SQ TID (Preferred with Epidurals) *Enoxaparin/Lovenox 40 mg SQ daily (WT < 150 kg, CrCl > 30 mL/min) *Enoxaparin/Lovenox 30 mg SQ daily (WT < 150 kg, CrCl > 10-29 mL/min) *Enoxaparin/Lovenox 30 mg SQ BID (WT < 150 kg, CrCl > 30 mL/min) AND *Sequential Compression Device (SCD) Assessment and Plan Plan 68 yrs old female with: Left internal carotid artery occlusion Left central retinal artery occlusion CTA of the neck and [place] with finding of left carotid occlusion in the cervical region MRI of the brain by me with finding of 2 small old infarct on the left otherwise no acute infarct noted Appreciate input from neurology, vascular surgery Currently on IV heparin drip Check 2D echo, and Place Holter monitoring Rule out ACS per protocol with serial cardiac enzyme and EKGs Diabetes type 2 Hold oral antihyperglycemic agent, start insulin sliding scale as previously blood glucose monitoring Hyperlipidemia, hypertension and other chronic medical conditions Continue outpatient medications DVT prophylaxis: Heparin drip H&P: Quality VTE Deep Vein Thrombosis/Pulmonary Embolism Present on Admission: No
--- NOTE | 2018-10-05 14:02 | ECHRPT ---
Indication: CVA/TIA CONCLUSIONS Normal left ventricular size. Wall thickness is normal. The left ventricular systolic function is low normal with an estimated ejection fraction in the rang e of 50- 55%. There was limited left ventricular wall motion assessment due to poor endocardial visualization. Mild thickening of the mitral valve leaflets. Mitral annular calcification is present. There is trace tricuspid valve regurgitation. The estimated pulmonary arterial pressure is 23mmHg. BP: / HR: Rhythm: Sinus MEASUREMENTS (Male / Female) Normal Values Technical Quality:Poor 2D ECHO LVOT Diameter 1.9 cm DOPPLER AV Peak Velocity 158.0 cm/s AV Peak Gradient 10.0 mmHg LVOT Peak Velocity 117.5 cm/s LVOT Peak Gradient 5.5 mmHg AV Area Cont Eq pk 2.1 cm Mitral E Point Velocity 106.0 cm/s Mitral A Point Velocity 144.0 cm/s Mitral E to A Ratio 0.7 LV E' Lateral Velocity 9.9 cm/s Mitral E to LV E' Lateral Ratio 10.7 TR Peak Velocity 182.0 cm/s TR Peak Gradient 13.2 mmHg Right Atrial Pressure 10.0 mmHg Pulmonary Artery Systolic Pressu 23.2 mmHg Right Ventricular Systolic Press 23.2 mmHg FINDINGS LEFT VENTRICLE Normal left ventricular size. Wall thickness is normal. The left ventricular systolic function is low normal with an estimated ejection fraction in the rang e of 50- 55%. There was limited left ventricular wall motion assessment due to poor endocardial visualization. RIGHT VENTRICLE The right ventricle was not well visualized. LEFT ATRIUM The left atrial size is normal. RIGHT ATRIUM The right atrium is not well visualized. ATRIAL SEPTUM Normal atrial septal thickness without atrial level shunting by limited color doppler interrogation. AORTA The aortic root and proximal ascending aorta are normal in size on limited imaging. MITRAL VALVE Mild thickening of the mitral valve leaflets. Mitral annular calcification is present. AORTIC VALVE Trileaflet aortic valve. No aortic valve stenosis or regurgitation. TRICUSPID VALVE There is trace tricuspid valve regurgitation. The estimated pulmonary arterial pressure is 23mmHg. PULMONARY VALVE No pulmonary valve regurgitation or stenosis. VESSELS The inferior vena cava is normal in size. PERICARDIUM No pericardial effusion. Ken Frye MD, FACC (Electronically Signed) Final Date:05 October 2018 14:02
[2018-10-05 14:12] LABS: Free T4 (Free Thyroxine) 0.95 ng/dL (0.76-1.46); Vitamin B12 440 pg/mL (193-986)
[2018-10-06] MEDS: Sod Chloride 0.9% Inj 1,000 ML IV.CONT SCH ×3 (05:20→22:48)
[2018-10-06 06:31] LABS: Prothrombin Time 10.4 sec (9.8-11.6)
[2018-10-06] MEDS: Insulin NovoLOG Aspart Correctional Sugar Inj SQ SCH ×4 (07:30→22:47)
[2018-10-06] MEDS: Atenolol 50 MG Tablet PO SCH (08:35)
[2018-10-06] MEDS: Lisinopril 20 MG Tablet PO SCH (08:35)
[2018-10-06] MEDS: Heparin Drip 25,000 UNIT/250 ML BAG IV.CONT PRN (08:43)
--- NOTE | 2018-10-06 09:56 | P.PNIM ---
Subjective Interval history: Follow-up left internal carotid artery occlusion/left central retinal artery occlusion October 06, 2018patient seen and examined, complains of facial pressure, headaches and blurry vision mostly on the left. Physical Exam Vital signs: Vital Signs 10/05/18 12:00 10/05/18 16:00 10/05/18 19:02 Temperature 97.1 F L 97.7 F Pulse Rate 80 77 68 Respiratory Rate 20 20 Blood Pressure 139/75 142/97 H Pulse Oximetry 98 96 10/05/18 20:00 10/06/18 00:00 10/06/18 00:05 Temperature 97.6 F 98 F Pulse Rate 77 69 65 Respiratory Rate 20 20 Blood Pressure 146/79 H 132/67 Pulse Oximetry 95 95 10/06/18 04:24 10/06/18 08:00 Temperature 97.8 F Pulse Rate 69 71 Respiratory Rate 20 Blood Pressure 147/73 H Pulse Oximetry 96 Intake & Output 10/05/18 10/06/18 10/06/18 18:59 06:59 18:59 Intake Total 1720 / 1720 610 / 610 Output Total 500 / 500 Balance 1220 / 1220 610 / 610 Weight 109.1 kg Intake: IV 1000 / 1000 250 / 250 Heparin/D5W 25,000 U/250 mL 25, 250 / 250 000 unit In 250 ml @ Per Protocol 12 mls/hr IV.CONT TITRATE PRN Rx#:[id number] NS Inj 1,000 ML @ 100 mls/hr IV 1000 / 1000 .CONT .Q10H [facility] Rx#:[id number] Oral 720 / 720 360 / 360 Output: Urine 500 / 500 Other: # Voids 4 Narrative: GENERAL: NAD SKIN: Warm and dry. HEAD: Atraumatic. Normocephalic. EYES: Pupils equal and round. No scleral icterus. No injection or drainage. ENT: No nasal bleeding or discharge. Mucous membranes pink and moist. NECK: Trachea midline. No JVD. CARDIOVASCULAR: Regular rate and rhythm. RESPIRATORY: No accessory muscle use. Clear to auscultation. Breath sounds equal bilaterally. GASTROINTESTINAL: Abdomen soft, non-tender, nondistended. Hepatic and splenic margins not palpable. MUSCULOSKELETAL: Extremities without clubbing, cyanosis, or edema. No obvious deformities. NEUROLOGICAL: Awake and alert. No obvious cranial nerve deficits. Motor grossly within normal limits. Five out of 5 muscle strength in the arms and legs. Normal speech. PSYCHIATRIC: Appropriate mood and affect; insight and judgment normal. Results Labs CBC & Chem 7: 10/05/18 05:20 10/05/18 05:20 Imaging Imaging: Impressions Head MRI 10/05/18 00:00 CONCLUSION: 1. Chronic ischemic small vessel vasculopathy. 2. 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 Head MRA 10/05/18 00:00 CONCLUSION: 1. Occlusion of the distal left internal carotid artery. 2. No large vessel stenosis or aneurysm in the intracranial vasculature. Assessment and Plan Plan 68 yrs old female with: Left internal carotid artery occlusion Left central retinal artery occlusion CTA of the neck and [place] with finding of left carotid occlusion in the cervical region MRI of the brain by me with finding of 2 small old infarct on the left otherwise no acute infarct noted Appreciate input from neurology, vascular surgery Currently on IV heparin drip bridge to Coumadin 2D echo with EF of 50-55%, and Holter monitoring in place ACS ruled out per protocol with serial cardiac enzyme and EKGs Diabetes type 2 Hold oral antihyperglycemic agent, continue insulin sliding scale as previously blood glucose monitoring Hyperlipidemia, hypertension and other chronic medical conditions Continue outpatient medications DVT prophylaxis: Heparin drip Progress Note: Quality VTE Deep Vein Thrombosis/Pulmonary Embolism Present on Admission: No
--- NOTE | 2018-10-06 12:45 | P.PNNEU ---
Subjective Active Medications: Active Medications Acetaminophen (Tylenol) 650 mg PO Q4H PRN PRN Reason: HEADACHE Al Hydroxide/Mg Hydroxide (Milk Of Magnesia Liq) 30 ml PO Q12H PRN PRN Reason: Mild Constipation Atenolol (Tenormin) 50 mg PO DAILY [facility] Last Admin: 10/06/18 08:35 Dose: 50 mg Atorvastatin Calcium (Lipitor) 40 mg PO QPM [facility] Last Admin: 10/05/18 17:20 Dose: 40 mg Dextrose (D50w Vial) 50 ml IV.PUSH UNSCH PRN PRN Reason: PER HYPOGLYCEMIA PROTOCOL Glucagon (Glucagon Inj) 1 mg OTHER PRN PRN PRN Reason: for Hypoglycemia Protocol Hydrochlorothiazide (Microzide) 12.5 mg PO DAILY [facility] Last Admin: 10/06/18 08:36 Dose: 12.5 mg Sodium Chloride (Ns Inj) 1,000 mls @ 100 mls/hr IV.CONT .Q10H [facility] Last Admin: 10/06/18 10:22 Dose: Not Given Heparin Sodium/Dextrose (Heparin/D5w 25,000 U/250 Ml) 25,000 unit in 250 mls @ 12 mls/hr IV.CONT TITRATE PRN; Protocol PRN Reason: Per Protocol Last Admin: 10/06/18 08:43 Dose: 1,200 units/hr, 12 mls/hr Insulin Aspart (Novolog Insulin Correctional Sugar Inj) 0 unit SQ ACHS [facility]; Protocol Last Admin: 10/06/18 11:52 Dose: Not Given Lisinopril (Prinivil) 20 mg PO DAILY [facility] Last Admin: 10/06/18 08:35 Dose: 20 mg Ondansetron HCl (Zofran Inj) 4 mg IV.PUSH Q6H PRN PRN Reason: NAUSEA OR VOMITING Sodium Chloride (Ns Flush) 2 ml IV.FLUSH BID [facility] Last Admin: 10/06/18 08:36 Dose: Not Given Sodium Chloride (Ns Flush) 2 ml IV.FLUSH PRN PRN PRN Reason: FLUSH AFTER USING IV ACCESS Warfarin Sodium (Coumadin) 5 mg PO DAILY@1600 [facility] Last Admin: 10/05/18 15:32 Dose: 5 mg Allergies/Adverse Reactions: Allergies Allergy/AdvReac Type Severity Reaction Status Date / Time No Known Allergies Allergy Verified 10/04/18 14:51 Physical Exam Vital signs: Vital Signs 10/05/18 16:00 10/05/18 19:02 10/05/18 20:00 Temperature 97.7 F 97.6 F Pulse Rate 77 68 77 Respiratory Rate 20 20 Blood Pressure 142/97 H 146/79 H Pulse Oximetry 96 95 10/06/18 00:00 10/06/18 00:05 10/06/18 04:24 Temperature 98 F Pulse Rate 69 65 69 Respiratory Rate 20 Blood Pressure 132/67 Pulse Oximetry 95 10/06/18 08:00 10/06/18 09:56 Temperature 97.8 F Pulse Rate 71 Respiratory Rate 20 Blood Pressure 147/73 H Pulse Oximetry 96 96 Intake & Output 10/05/18 10/06/18 10/06/18 18:59 06:59 18:59 Intake Total 1720 / 1720 610 / 610 Output Total 500 / 500 Balance 1220 / 1220 610 / 610 Weight 109.1 kg Intake: IV 1000 / 1000 250 / 250 Heparin/D5W 25,000 U/250 mL 25, 250 / 250 000 unit In 250 ml @ Per Protocol 12 mls/hr IV.CONT TITRATE PRN Rx#:[id number] NS Inj 1,000 ML @ 100 mls/hr IV 1000 / 1000 .CONT .Q10H [facility] Rx#:[id number] Oral 720 / 720 360 / 360 Output: Urine 500 / 500 Other: # Voids 4 Narrative: no new sx nl speech still dec vision os Objective Laboratory Results - last 24 hr 10/05/18 10/05/18 10/05/18 11:23 11:23 16:57 PT INR APTT POC Glucose 110 Total Protein (PEP) 6.7 Vitamin B12 440 Folate Greater than 20.0 H Free T4 0.95 RPR Nonreactive 10/05/18 10/05/18 10/05/18 17:04 21:24 23:45 PT INR APTT 42.2 H D 47.2 H POC Glucose 151 Total Protein (PEP) Vitamin B12 Folate Free T4 RPR 10/06/18 10/06/18 10/06/18 04:35 04:35 07:10 PT 10.4 INR 1.0 APTT 48.5 H POC Glucose 136 Total Protein (PEP) Vitamin B12 Folate Free T4 RPR 10/06/18 11:35 PT INR APTT POC Glucose 107 Total Protein (PEP) Vitamin B12 Folate Free T4 RPR Review/Management - Review/Management Plan: imp left crao and left ica occlusion on hep coumadin i would rec 10 mg tonight as ate greens and broccoli last pm can dc when inr >1.9 have her call my office tuesday if dc
[2018-10-06 15:35] LABS: Anti-Nuclear Antibody Screen Neg (Neg)
--- NOTE | 2018-10-06 16:04 | MB ---
cc: Andrea Bush MD DATE: 10/06/2018 CONSULTING PHYSICIAN: Andrea Bush MD, vascular surgery. REASON FOR CONSULTATION: Left carotid artery occlusion and left hemispheric ischemia. HISTORY OF PRESENT ILLNESS: This 68-year-old female was admitted after she was seen in the family doctor's office and by kindergartner. The patient noted that on the day of admission, she woke up in the morning and noticed a veil over her left eye and then became amaurotic. She went to her eye doctor and she was found to have central retinal occlusion. For that, she was sent to the emergency room, worked up, and found to have left internal carotid artery and middle cerebral artery occlusion. Vascular surgery consultation was sought. PAST MEDICAL HISTORY: Non-insulin dependent diabetes mellitus, hypercholesterolemia, and hypertension. PAST SURGICAL HISTORY: None. SOCIAL HISTORY: The patient does not smoke. Drinks socially and has no other risks. PHYSICAL EXAMINATION: GENERAL: Reveals a pleasant 68-year-old lady, awake, alert, oriented. HEENT: Normocephalic. No trauma to the head. Pupils are equal and reactive. Extraocular muscles intact. Decreased central vision in the left eye. NECK: Bilateral carotid pulses in the lower neck and then on the right side, the patient has normal pulses. The left side, none. Superficial temporal artery has normal flow anterior to the ear. CHEST: Bilateral breath sounds. HEART: Regular rhythm. The patient has no arrhythmias and echocardiogram is essentially normal. There are no vegetations or any areas that would be suggestive of a cardiac arterial embolization. ABDOMEN: Soft. Active bowel sounds. EXTREMITIES: Actually within normal limits. The patient has proximal and distal pulses which are palpable in both legs and both arms. NEUROLOGIC: The patient is actually intact. She has bilateral motoric strength in the upper and lower extremities. Sensory preserved and the only problem are the visual changes. IMPRESSION AND RECOMMENDATIONS: I reviewed the laboratory and diagnostic procedures: This pleasant lady has a left internal carotid artery occlusion, starting from the bifurcation of the common all the way up to the middle cerebral artery. There is no surgical intervention that would remedy this. A total occlusion of the vessel is a contraindication to any surgery. We see occasional patients with minimal hair line flow and even then, surgery is possible. On the other hand, once the vessel is fully occluded, there is nowhere to go. The patient has to be perfused from the other 3 vessels. I agree with Dr. Garcia. The patient should be on heparin and then be switched to an anticoagulant p.o., either Coumadin or factor Xa inhibitor. It is very unclear why patient had this event, but looking at the MRI of the brain, the patient had previous small strokes, so perhaps she had a very tight internal carotid artery stenosis that was showering a little emboli and finally the whole thing came to a grinding halt. Either way, patient is not a surgical candidate at this time. I thank you very much for the referral. MD DIAZ Saini/katerina , 03:44 PM , 03:54 PM
[2018-10-07] MEDS: Heparin Drip 25,000 UNIT/250 ML BAG IV.CONT PRN (04:40)
[2018-10-07] MEDS: Sod Chloride 0.9% Inj 1,000 ML IV.CONT SCH ×2 (07:40→16:00)
[2018-10-07 07:43] LABS: Activated Partial Thrombo Time 57.9 sec (23.4-31.7); INR 1.1 Ratio; Prothrombin Time 11.4 sec (9.8-11.6)
[2018-10-07] MEDS: Atenolol 50 MG Tablet PO SCH (08:16)
[2018-10-07] MEDS: Lisinopril 20 MG Tablet PO SCH (08:16)
[2018-10-07] MEDS: Insulin NovoLOG Aspart Correctional Sugar Inj SQ SCH ×4 (08:18→21:01)
--- NOTE | 2018-10-07 10:54 | P.PNIM ---
Subjective Interval history: Follow-up left internal carotid artery occlusion/left central retinal artery occlusion October 07, 2018patient seen and examined, still with complains of blurred vision to her left eye a feeling of a presence of a cloud in front of back left eye. Otherwise patient has no other complaints; she was up and ambulating the hallway today. Currently on Coumadin 10 mg however INR 1.1. Physical Exam Vital signs: Vital Signs 10/06/18 12:00 10/06/18 16:00 10/06/18 19:32 Temperature 96.5 F L 96.3 F L Pulse Rate 72 74 Respiratory Rate 20 20 Blood Pressure 113/73 123/71 Pulse Oximetry 96 95 96 10/06/18 20:00 10/06/18 22:00 10/07/18 00:01 Temperature 96.8 F L 96.5 F L Pulse Rate 82 92 H 67 Respiratory Rate 20 20 Blood Pressure 188/88 H 106/51 L Pulse Oximetry 95 96 10/07/18 00:05 10/07/18 02:48 10/07/18 04:00 Temperature 96.8 F L Pulse Rate 90 75 Respiratory Rate 18 20 Blood Pressure 114/54 L Pulse Oximetry 95 10/07/18 07:27 10/07/18 08:00 10/07/18 08:10 Temperature 96.6 F L Pulse Rate 79 107 H Respiratory Rate 20 Blood Pressure 136/63 Pulse Oximetry 95 96 Intake & Output 10/06/18 10/07/18 10/07/18 18:59 06:59 18:59 Intake Total 2009 730 / 730 Balance 2009 730 / 730 Weight 109.2 kg Intake: IV 250 / 250 250 / 250 Heparin/D5W 25,000 U/250 mL 25, 250 / 250 250 / 250 000 unit In 250 ml @ Per Protocol 12 mls/hr IV.CONT TITRATE PRN Rx#:[id number] Oral 1760 / 1760 480 / 480 Other: # Voids 10 5 Date of Last Bowel Movement 10/06/18 10/06/18 # Bowel Movements 2 Narrative: GENERAL: NAD SKIN: Warm and dry. HEAD: Atraumatic. Normocephalic. EYES: Pupils equal and round. No scleral icterus. No injection or drainage. ENT: No nasal bleeding or discharge. Mucous membranes pink and moist. NECK: Trachea midline. No JVD. CARDIOVASCULAR: Regular rate and rhythm. RESPIRATORY: No accessory muscle use. Clear to auscultation. Breath sounds equal bilaterally. GASTROINTESTINAL: Abdomen soft, non-tender, nondistended. Hepatic and splenic margins not palpable. MUSCULOSKELETAL: Extremities without clubbing, cyanosis, or edema. No obvious deformities. NEUROLOGICAL: Awake and alert. No obvious cranial nerve deficits. Motor grossly within normal limits. Five out of 5 muscle strength in the arms and legs. Normal speech. PSYCHIATRIC: Appropriate mood and affect; insight and judgment normal. 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 CTA of the neck and [place] with finding of left carotid occlusion in the cervical region MRI of the brain by me with finding of 2 small old infarct on the left otherwise no acute infarct noted Appreciate input from neurology, vascular surgery Currently on IV heparin drip bridge to Coumadin, discharge when INR greater than 1.9 Currently on Coumadin 10 mg daily 2D echo with EF of 50-55%, and Holter monitoring in place ACS ruled out per protocol with serial cardiac enzyme and EKGs Diabetes type 2 Hold oral antihyperglycemic agent, continue insulin sliding scale as previously blood glucose monitoring Hyperlipidemia, hypertension and other chronic medical conditions Continue outpatient medications DVT prophylaxis: Heparin drip Progress Note: Quality VTE Deep Vein Thrombosis/Pulmonary Embolism Present on Admission: No
--- NOTE | 2018-10-07 12:08 | P.PNVS ---
Subjective Subjective/Hospital Course: Referral received and full consult to follow Litzy Parrish 10/07/2018 I reviewed the laboratory and diagnostic procedures: This pleasant lady has a left internal carotid artery occlusion, starting from the bifurcation of the common all the way up to the middle cerebral artery. There is no surgical intervention that would remedy this. A total occlusion of the vessel is a contraindication to any surgery. We see occasional patients with minimal hair line flow and even then, surgery is possible. On the other hand, once the vessel is fully occluded, there is nowhere to go. The patient has to be perfused from the other 3 vessels. I agree with Dr. Garcia. The patient should be on heparin and then be switched to an anticoagulant p.o., either Coumadin or factor Xa inhibitor. It is very unclear why patient had this event, but looking at the MRI of the brain, the patient had previous small strokes, so perhaps she had a very tight internal carotid artery stenosis that was showering alittle emboli and finally the whole thing came to a grinding halt. Either way, patient is not a surgical candidate at this time. Objective Vital Signs / I&O: Vital Signs 10/06/18 16:00 10/06/18 19:32 10/06/18 20:00 Temperature 96.3 F L 96.8 F L Pulse Rate 74 82 Respiratory Rate 20 20 Blood Pressure 123/71 188/88 H Pulse Oximetry 95 96 95 10/06/18 22:00 10/07/18 00:01 10/07/18 00:05 Temperature 96.5 F L Pulse Rate 92 H 67 90 Respiratory Rate 20 Blood Pressure 106/51 L Pulse Oximetry 96 10/07/18 02:48 10/07/18 04:00 10/07/18 07:27 Temperature 96.8 F L Pulse Rate 75 Respiratory Rate 18 20 Blood Pressure 114/54 L Pulse Oximetry 95 95 10/07/18 08:00 10/07/18 08:10 Temperature 96.6 F L Pulse Rate 79 107 H Respiratory Rate 20 Blood Pressure 136/63 Pulse Oximetry 96 Intake & Output 10/06/18 10/07/18 10/07/18 18:59 06:59 18:59 Intake Total 2009 730 / 730 Balance 2009 730 / 730 Weight 109.2 kg Intake: IV 250 / 250 250 / 250 Heparin/D5W 25,000 U/250 mL 25, 250 / 250 250 / 250 000 unit In 250 ml @ Per Protocol 12 mls/hr IV.CONT TITRATE PRN Rx#:[id number] Oral 1760 / 1760 480 / 480 Other: # Voids 10 5 Date of Last Bowel Movement 10/06/18 10/06/18 # Bowel Movements 2 Laboratory Results - last 24 hr 10/05/18 10/06/18 10/06/18 11:23 16:07 22:46 PT INR APTT POC Glucose 107 115 JEFFREY Screen Neg 10/07/18 10/07/18 10/07/18 06:26 07:15 11:45 PT 11.4 INR 1.1 APTT 57.9 H POC Glucose 137 106 JEFFREY Screen
[2018-10-08] MEDS: Heparin Drip 25,000 UNIT/250 ML BAG IV.CONT PRN ×2 (00:43→23:19)
[2018-10-08] MEDS: Sod Chloride 0.9% Inj 1,000 ML IV.CONT SCH (02:00)
[2018-10-08 08:13] LABS: INR 1.4 Ratio; Prothrombin Time 14.5 sec (9.8-11.6)
[2018-10-08] MEDS: Insulin NovoLOG Aspart Correctional Sugar Inj SQ SCH ×4 (08:54→20:49)
[2018-10-08] MEDS: Lisinopril 20 MG Tablet PO SCH (09:03)
[2018-10-08] MEDS: Atenolol 50 MG Tablet PO SCH (09:03)
--- NOTE | 2018-10-08 10:02 | HM ---
Date Performed: 10/05/2018 Time Performed: 17:41:00 HOOKUP DATE: 10/05/18 05:41:00 PM [facility] ANALYSIS START TIME: 10/05/2018 5:46:00 PM ANALYSIS END TIME: 10/06/2018 5:49:59 PM PATIENT AGE: 68 PATIENT HEIGHT: 68 PATIENT WEIGHT: 235 DRUG LIST: ROOM 8306B PATIENT DIAGNOSIS: NEURO TEST NARRATIVE: The patient's average heart rate was 75 BPM. Heart rates greater than 120 B PM were noted < 1% of the time. No episodes of bradycardia were noted. No pauses exceeding 2.0 s econds were noted. 8 ventricular ectopics, which represented < 1% of the total beat count, were n oted. The highest ventricular ectopic frequency occurred from 01:00 AM to 02:00 AM Fri. During this time 2 VE(s) occurred. Ventricular ectopics were observed as 8 isolated beat(s) only. No couplets or runs were noted. 18 supraventricular ectopics, which represented < 1% of the total beat count, were noted. The highest supraventricular ectopic frequency occurred from 09:00 PM to 10:00 PM [facility]. During this time 4 SVE(s) occurred. Multiple episodes of ST depression (defined as -1.0 mm or mo re) were noted in channel 1. The maximum depression of -1.7 mm occurred at 10:04:01 AM Fri. No epi sodes of ST depression (defined as -1.0 mm or more) were noted in channel 2. No episodes of ST depre ssion (defined as -1.0 mm or more) were noted in channel 3. NO DIARY WAS GIVEN TO PATIENT TEST INTERPRETATION: Sinus rhythm Occasional PACs and PVCs Signed b y : Nikolai Rodriguez
--- NOTE | 2018-10-08 11:06 | P.PNIM ---
Subjective Interval history: Follow-up left internal carotid artery occlusion/left central retinal artery occlusion October 08, 2018patient seen and examined, she was up and ambulated, stable and has no complaint today. INR up to 1.4. Physical Exam Vital signs: Vital Signs 10/07/18 12:00 10/07/18 12:35 10/07/18 16:00 Temperature 98.7 F Pulse Rate 73 70 85 Respiratory Rate 20 Blood Pressure 115/55 L Pulse Oximetry 94 L 10/07/18 16:52 10/07/18 19:30 10/07/18 20:00 Temperature 97.2 F L 97.5 F L Pulse Rate 72 88 Respiratory Rate 20 18 Blood Pressure 127/65 103/53 L Pulse Oximetry 96 96 96 10/07/18 23:45 10/08/18 00:00 10/08/18 04:00 Temperature 96.2 F L 96.4 F L Pulse Rate 77 75 62 Respiratory Rate 18 18 Blood Pressure 103/60 123/64 Pulse Oximetry 97 95 10/08/18 08:00 10/08/18 10:45 Temperature Pulse Rate 69 Respiratory Rate Blood Pressure Pulse Oximetry 96 Intake & Output 10/07/18 10/08/18 10/08/18 18:59 06:59 18:59 Intake Total 1280 / 1280 730 / 730 Balance 1280 / 1280 730 / 730 Weight 109.4 kg Intake: IV 250 / 250 Heparin/D5W 25,000 U/250 mL 25, 250 / 250 000 unit In 250 ml @ Per Protocol 12 mls/hr IV.CONT TITRATE PRN Rx#:[id number] Oral 1280 / 1280 480 / 480 Other: # Voids 10 4 Date of Last Bowel Movement 10/06/18 # Bowel Movements 0 1 Narrative: GENERAL: NAD SKIN: Warm and dry. HEAD: Atraumatic. Normocephalic. EYES: Pupils equal and round. No scleral icterus. No injection or drainage. ENT: No nasal bleeding or discharge. Mucous membranes pink and moist. NECK: Trachea midline. No JVD. CARDIOVASCULAR: Regular rate and rhythm. RESPIRATORY: No accessory muscle use. Clear to auscultation. Breath sounds equal bilaterally. GASTROINTESTINAL: Abdomen soft, non-tender, nondistended. Hepatic and splenic margins not palpable. MUSCULOSKELETAL: Extremities without clubbing, cyanosis, or edema. No obvious deformities. NEUROLOGICAL: Awake and alert. No obvious cranial nerve deficits. Motor grossly within normal limits. Five out of 5 muscle strength in the arms and legs. Normal speech. PSYCHIATRIC: Appropriate mood and affect; insight and judgment normal. 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 CTA of the neck and [place] with finding of left carotid occlusion in the cervical region MRI of the brain by me with finding of 2 small old infarct on the left otherwise no acute infarct noted Appreciate input from neurology, vascular surgery Currently on IV heparin drip bridge to Coumadin, discharge when INR greater than 1.9 Currently on Coumadin 10 mg daily and INR 1.4 today October 08, 2018 2D echo with EF of 50-55%, and Holter monitoring in place ACS ruled out per protocol with serial cardiac enzyme and EKGs Diabetes type 2 Hold oral antihyperglycemic agent, continue insulin sliding scale as previously blood glucose monitoring Hyperlipidemia, hypertension and other chronic medical conditions Continue outpatient medications DVT prophylaxis: Heparin drip Progress Note: Quality VTE Deep Vein Thrombosis/Pulmonary Embolism Present on Admission: No
[2018-10-08] MEDS ORDERED: Loperamide 2 MG Capsule PO PRN (14:18)
[2018-10-09 06:31] LABS: Activated Partial Thrombo Time 65.5 sec (23.4-31.7); INR 1.7 Ratio; Prothrombin Time 17.4 sec (9.8-11.6)
[2018-10-09] MEDS: Insulin NovoLOG Aspart Correctional Sugar Inj SQ SCH ×4 (08:53→20:46)
[2018-10-09] MEDS: Lisinopril 20 MG Tablet PO SCH (08:56)
[2018-10-09] MEDS: Atenolol 50 MG Tablet PO SCH (08:56)
--- NOTE | 2018-10-09 10:14 | P.PNIM ---
Subjective Interval history: Follow-up left internal carotid artery occlusion/left central retinal artery occlusion October 09, 2018patient seen and examined, INR up to 1.7. Patient still complaining of loss of vision in the left eye, denies any headaches. Physical Exam Vital signs: Vital Signs 10/08/18 10:45 10/08/18 12:00 10/08/18 16:00 Temperature 96.4 F L 97.6 F Pulse Rate 80 67 Respiratory Rate 20 20 Blood Pressure 130/66 110/57 L Pulse Oximetry 96 96 96 10/08/18 20:00 10/09/18 00:00 10/09/18 03:25 Temperature 97.4 F L 96.5 F L 98.4 F Pulse Rate 87 65 77 Respiratory Rate 18 18 18 Blood Pressure 146/67 H 101/53 L 115/64 Pulse Oximetry 92 L 95 94 L 10/09/18 04:00 10/09/18 08:00 Temperature 97.1 F L Pulse Rate 60 85 Respiratory Rate 22 Blood Pressure 121/61 Pulse Oximetry 97 Intake & Output 10/08/18 10/09/18 10/09/18 18:59 06:59 18:59 Intake Total 340 / 340 Output Total 980 / 980 Balance -640 / -640 Weight 104.3 kg Intake: IV 250 / 250 Heparin/D5W 25,000 U/250 mL 25, 250 / 250 000 unit In 250 ml @ Per Protocol 12 mls/hr IV.CONT TITRATE PRN Rx#:[id number] Oral 90 / 90 Output: Urine 980 / 980 Other: # Voids 3 Date of Last Bowel Movement 10/08/18 10/08/18 # Bowel Movements 4 Narrative: GENERAL: NAD SKIN: Warm and dry. HEAD: Atraumatic. Normocephalic. EYES: Pupils equal and round. No scleral icterus. No injection or drainage. ENT: No nasal bleeding or discharge. Mucous membranes pink and moist. NECK: Trachea midline. No JVD. CARDIOVASCULAR: Regular rate and rhythm. RESPIRATORY: No accessory muscle use. Clear to auscultation. Breath sounds equal bilaterally. GASTROINTESTINAL: Abdomen soft, non-tender, nondistended. Hepatic and splenic margins not palpable. MUSCULOSKELETAL: Extremities without clubbing, cyanosis, or edema. No obvious deformities. NEUROLOGICAL: Awake and alert. No obvious cranial nerve deficits. Motor grossly within normal limits. Five out of 5 muscle strength in the arms and legs. Normal speech. PSYCHIATRIC: Appropriate mood and affect; insight and judgment normal. 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 CTA of the neck and [place] with finding of left carotid occlusion in the cervical region MRI of the brain by me with finding of 2 small old infarct on the left otherwise no acute infarct noted Appreciate input from neurology, vascular surgery Currently on IV heparin drip bridge to Coumadin, discharge when INR greater than 1.9 Currently on Coumadin 10 mg daily and INR 1.7 today October 09, 2018 2D echo with EF of 50-55%, and Holter monitoring in place ACS ruled out per protocol with serial cardiac enzyme and EKGs Diabetes type 2 Hold oral antihyperglycemic agent, continue insulin sliding scale as previously blood glucose monitoring Hyperlipidemia, hypertension and other chronic medical conditions Continue outpatient medications DVT prophylaxis: Heparin drip and Coumadin Progress Note: Quality VTE Deep Vein Thrombosis/Pulmonary Embolism Present on Admission: No
[2018-10-09] MEDS: Acetaminophen 325 MG Tablet PO PRN ×2 (11:23→20:37)
[2018-10-10] MEDS: Heparin Drip 25,000 UNIT/250 ML BAG IV.CONT PRN (02:26)
[2018-10-10 07:11] LABS: INR 2.1 Ratio; Prothrombin Time 20.8 sec (9.8-11.6)
[2018-10-10] MEDS: Insulin NovoLOG Aspart Correctional Sugar Inj SQ SCH ×2 (08:16→11:29)
[2018-10-10] MEDS: Lisinopril 20 MG Tablet PO SCH (08:17)
[2018-10-10] MEDS: Atenolol 50 MG Tablet PO SCH (08:17)
[2018-10-10 11:59] VITALS: BP 104/50; RESP 20; TEMP 96.8; O2SAT 97
[2018-10-10 12:21] VITALS: PULSE 67
--- NOTE | 2018-10-10 17:36 | P.DS ---
DS: Providers Date of admission: 10/05/18 10:39 Primary care physician: Tenzin Small MD Consults: 10/04/18 18:07 Consult to Neurology Routine Consulting Provider: Dimas Lal Reason for Consultation: cva rule out - visual disturbance complete occlusion of left carotid Notified:: Service Spoke with:: JAMMIE Date Notified:: 10/04/18 Time Notified:: 18:21 Ordering Provider: JUNIOR Anticipated date of discharge: 10/10/18 Brief History from admission: 68-year-old female for past medical history of diabetes type 2, hypertension and hyperlipidemia presented to the ED yesterday at the request of ophthalmology for evaluation of left central retinal artery occlusion. Patient states, around 5:30 AM on the morning of October 04, 2018, she would And noted a sensation of cloud in her left eye. She states he felt like loss of visions but there was no associated pain. Few hours after she tried warm compress and eyedrops applied to the left eye without any improvement and decided to seek medical attention. She was initially seen by her PCP will refer her to an midwife, where she was diagnosed with left central retinal artery occlusion. She presented to the ED and was subsequently admitted. She has no chest pain or shortness of breath. While in the ED, neck CTA/MRA revealed left internal carotid artery occlusion for which vascular surgery was consulted. Neurology was also consulted and patient was seen this morning by Dr. Camarena. DS: Diagnosis Discharge Diagnosis (1) CRAO (central retinal artery occlusion): Status: Acute DS: Summary 68-year-old female who originally presented to the emergency department for evaluation at the request of ophthalmology for evaluation of retinal artery occlusion. Patient did have workup done and was found to have retinal artery occlusion, complete left carotid occlusion. Patient had evaluation done by neurology who recommended Coumadin anticoagulation until INR greater than 1.9. Vascular surgery evaluated the patient and in the that due to the complete occlusion of the carotid artery there is no surgical intervention warranted. Recommend anticoagulation. Clinically patient is stable. Still has visual disturbance of the left eye. She is anticoagulated with Coumadin with INR 2.1. Patient did not have any worsening symptoms during her stay in the hospital. Answered all the patient's questions. Patient does understand that she will need to follow-up with her primary medical doctor for management of her Coumadin. Notify that she should follow-up with neurologist in 2 weeks. Clinically the patient is stabilizing and anticoagulated. 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 Oral hypoglycemics will be continued upon discharge Hyperlipidemia, hypertension and other chronic medical conditions Home medications were continued upon admission. Blood pressure remained stable Time Spent with Patient Total time spent providing and/or coordinating discharge services: Greater than 30 minutes Quality: VTE Deep Vein Thrombosis/Pulmonary Embolism Present on Admission: No Exam Narrative Exam Narrative: GENERAL: Well-developed, well-nourished, in no acute distress. alert and orientated HEENT: Head is normocephalic without any lesions or masses noted. Facial features are symmetric. Eyes: Left eye is covered NECK: Supple without any masses. Trachea midline no deviation. No JVD, CARDIAC: Regular rhythm, regular rate. S1/S2 are heard. No murmurs gallops or rubs. LUNGS: Clear to auscultation bilaterally. No wheeze, rhonchi or rales. No use of accessory muscles on inspiration or expiration. ABDOMEN: Soft, nontender. Nondistended. Bowel sounds heard in all 4 quadrants. No organomegaly or masses. Negative rebound, negative guarding EXTREMITIES: No edema, pulses are equal bilaterally. No cyanosis or clubbing NEUROLOGY: Mood and affect appear appropriate. Moving all extremities, speech is clear Patient maintained that she still had central field blurry vision from her left eye, unchanged since admission but the time of discharge, had intact clarity within periphery. Results Labs on day of discharge: Labs from last 24 hours 10/10/18 10/10/18 10/10/18 11:22 07:13 04:55 PT INR APTT 78.0 H D POC Glucose 117 127 Total Protein (PEP) Albumin (PEP) Albumin/Globulin Ratio Xlmqv-3-Zrtdccfaq Ruqwc-6-Lbidjmcom Beta Globulins Gamma Globulins PEP Pathologist Comment 10/10/18 10/09/18 10/05/18 04:55 20:45 11:23 PT 20.8 H INR 2.1 APTT POC Glucose 157 Total Protein (PEP) Albumin (PEP) Albumin/Globulin Ratio Xmkhi-8-Dwhknxmze Swbbn-6-Saecaabot Beta Globulins Gamma Globulins PEP Pathologist Comment Impressions ITS Impressions Head CT 10/04/18 14:53 CONCLUSION: 1. Negative CT Head non contrast. . . Head CTA 10/04/18 14:53 CONCLUSION: 1. Left internal carotid artery occlusion noted as above. . . Neck CTA 10/04/18 14:53 CONCLUSION: 1. Occlusion of the left internal carotid artery at its origin. 2. Severe stenosis of the left subclavian artery just proximal to the origin of the vertebral artery. 3. Mild calcific plaque in the right carotid bulb with no significant stenosis. 4. Dominant right vertebral artery. Head MRI 10/05/18 00:00 CONCLUSION: 1. Chronic ischemic small vessel vasculopathy. 2. 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 Head MRA 10/05/18 00:00 CONCLUSION: 1. Occlusion of the distal left internal carotid artery. 2. No large vessel stenosis or aneurysm in the intracranial vasculature. Discharge Plan Discharge Disposition Patient Disposition: 01 Discharge Home Discharge Condition Condition: Stable Discharge Order Discharge Orders: Discharge Order (Routine); Ordered 10/10/18 Ordered By: Cristóbal Boucher Discharge Details Anticipated Discharge Date: 10/10/18 Physicians Team ED Provider: Dana Bejarano Primary Care Provider: Tenzin Small Attending Provider: Edward Townsend Other Providers: Valente Pollock ; Rubin Friend ; [employer] ; Ko Sorto ; Clarissa Kenyon ; Sebastian Padilla ; Gali Mack ; Spencer Hager ; Andrea Bush ; Dimas Lal Rxs /Orders / Referrals /Forms Prescriptions: New warfarin [Coumadin] 5 mg Tablet 5 mg PO DAILY@1600 Qty: 30 RF: 0 Continue atorvastatin [Lipitor] 40 mg Tablet 40 mg PO QPM RF: 0 metformin 500 mg Tablet 500 mg PO BID RF: 0 benazepril-hydrochlorothiazide 20-12.5 mg Tablet 1 tab PO DAILY RF: 0 atenolol 50 mg Tablet 50 mg PO DAILY RF: 0 omega 1-oof-rlk-fish oil 500-1,000 mg Capsule 1 cap PO BID RF: 0 cetirizine [Zyrtec] 10 mg Tablet 10 mg PO DAILY PRN (Reason: allergies) RF: 0 Discontinued aspirin [Aspir-Low] 81 mg Tablet,Delayed Release (Dr/Ec) 81 mg PO DAILY RF: 0 Ambulatory Orders / Order Sets / DME: Prothrombin Time INR (Routine) Location: Determined by Patient Ordered By: Cristóbal Boucher Referrals: Dimas Lal MD [Physician] - See Instructions (Follow up in 2 weeks) Tenzin Small MD [Primary Care Provider] - See Instructions Discharge Instructions Patient Printed Instructions: Warfarin (By mouth) Post Discharge Care Plan Care Plan Goals: Your Health Problems: Central Retinal Artery Occlusion Goals to Promote Your Health: * To prevent worsening of your condition * To maintain your health at the optimal level Directions to Meet Your Goals: * Take your medications as prescribed * Follow your dietary instruction * Follow activity as directed * Keep your appointments as scheduled * Take your immunizations and boosters as scheduled * If your symptoms worsen call your PCP * If no PCP go to Urgent Care or Emergency Room Smoking is dangerous to your health. Avoid second hand smoke. You may reach the 24-hour crisis hotline for domestic abuse at . Status ED Status: Left Department Discharge Information Discharge Date/Time: 10/10/18 14:44
== END 2018-10-10 14:44 | disposition home or self-care (01) | DRG 123 ==
LOC: PHED 14:15 → PHEDA 17:33 → INTOOBSV 17:33 → PH3 18:17
PROVIDERS: ADMIT Hospitalist; ATTEND Hospitalist
CPT/HCPCS: 70450; 70496; 70498; 70544; 70551; 80053; 80061; 81001; 82607; 82746; 82948; 82962; 84165; 84439; 84443; 84484; 85025; 85610; 85651; 85652; 85730; 86038; 86140; 86592; 92610; 93005; 93225; 93306; 97110; 97116; 97162; 99285; G0195; G8987; G8988; J1644; J7030; Q9967